=== PATIENT | male | born 1975 | race Caucasian/White ===

== ENCOUNTER 2018-08-03 14:11 | Emergency (ER) | payer SELFPAY ==
[2018-08-03] MEDS ORDERED: MORPHINE 4 MG/ML SYR ONE ×2 (14:26→15:29)
[2018-08-03] MEDS ORDERED: ONDANSETRON 4 MG/2 ML VIAL ONE (14:26)
[2018-08-03] MEDS ORDERED: BUPIVACAINE 0.5% PF 10 ML VIAL ONE (14:27)
[2018-08-03] MEDS ORDERED: LIDOCAINE 1% MPF 30 ML VIAL ONE (14:27)
[2018-08-03] MEDS ORDERED: CLINDAMYCIN 900MG/D5W 900 MG/50 ML BAG IV ONE (14:50)
[2018-08-03] MEDS ORDERED: CEFAZOLIN/SWI 1gm 2 GM/20 ML SYR ONE (14:50)
--- NOTE | 2018-08-03 14:52 | RAD REPORT ---
EXAM DESCRIPTION: [place] Single View08/03/2018 2:47 pm CLINICAL HISTORY: Chest pain COMPARISON: none FINDINGS: The lungs appear clear of acute infiltrate. The heart is normal size IMPRESSION: No acute abnormalities displayed
--- NOTE | 2018-08-03 14:55 | ER ---
Nurse's Notes [facility] Name: José Luis Friedman Age: 43 yrs Sex: Male : 1975 Arrival Date: 08/03/2018 Time: 14:10 Bed 2 Private MD: Diagnosis: Crushing injury of hand-distal radius, 3rd, 4th metacarpal fractures, open dip left thumb, complex laceration with foreign bodies Presentation: 08/03 14:10 Transition of care: patient was not received from another setting of care. Onset of sg symptoms was August 04, 2018. Risk Assessment: Do you want to hurt yourself or someone else? Patient reports no desire to harm self or others. Initial Sepsis Screen: Does the patient meet any 2 criteria? No. Patient's initial sepsis screen is negative. Does the patient have a suspected source of infection? No. Patient's initial sepsis screen is negative. 14:14 Presenting complaint: EMS states: Left hand was crushed in between two large sg construction pipes. Care prior to arrival:. Mechanism of Injury: Crush injury from being trapped between two large construction pipes that had unknown weight. Patient was trapped for approximately 20 minutes. 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 14:14 Acuity: MOOSE 2 14:14 Method Of Arrival: EMS: [facility] sg Triage Assessment: 08/04 14:10 General: Appears uncomfortable, Behavior is calm, cooperative, appropriate for age. sg Trauma Activation: Alert Physician: ED Physician; Name: ; Notified At: ; Arrived At: Physician: General Surgeon; Name: ; Notified At: ; Arrived At: Physician: Radiology; Name: ; Notified At: ; Arrived At: Physician: Respiratory; Name: ; Notified At: ; Arrived At: Physician: Lab; Name: ; Notified At: ; Arrived At: Historical: - Allergies: 08/03 14:12 No Known Allergies; sg - Home Meds: 14:12 None [Active]; sg - PMHx: 14:12 None; sg - PSHx: 14:12 Total Hip Replacement; sg - Code Status:: Full code. - Immunization history: Last tetanus immunization: - up to date. - Social history:: Smoking status: Patient/guardian denies using tobacco. - Family history:: not pertinent. - Ebola Screening: : Patient negative for fever greater than or equal to 101.5 degrees Fahrenheit, and additional compatible Ebola Virus Disease symptoms Patient denies exposure to infectious person Patient denies travel to an Ebola-affected area in the 21 days before illness onset No symptoms or risks identified at this time. Screenin:14 Abuse screen: Denies threats or abuse. Denies injuries from another. Tuberculosis ss screening: No symptoms or risk factors identified. Never had TB. Primary Survey: 14:14 A: Airway: patent, No supplemental oxygen in use on arrival. Breathing/Chest: ss Respiratory pattern: regular, Respiratory effort: unlabored, Breath sounds: clear, bilaterally. Chest inspection: symmetrical rise and fall of the chest. Circulation: Heart tones present. Pulses: palpable left radial artery and left brachial artery. Skin temperature: warm. Disability Alert. 14:30 Reassessment Airway Airway Patent Breathing/Chest Respiratory pattern Regular sg Respiratory effort Spontaneous Unlabored Breath sounds Clear Chest inspection Symmetrical Circulation Heart tones Present Temperature Warm Disability Alert. Secondary Survey: 14:14 HEENT: Head No injury/deformity Face No injury/deformity Eyes: No injury or deformity ss noted. Ears: clear Nose: clear Throat: is clear. Gastrointestinal: No deficits noted. : No signs and/or symptoms were reported regarding the genitourinary system. Musculoskeletal: Circulation, motion, and sensation intact. Capillary refill is sluggish, in left fingers. Range of motion: limited in left hand, left thumb Swelling present in left hand. Injury Description: Crush injury sustained to dorsal aspect of left wrist fracture to left thumb, is open with bone exposure noted. Assessment: 14:10 General: Appears in no apparent distress. uncomfortable, well groomed, well developed, sg well nourished, Behavior is calm, cooperative, appropriate for age. Pain: Complains of pain in left hand Quality of pain is described as aching, tender, throbbing, numb. Neuro: No deficits noted. Cardiovascular: Capillary refill is sluggish in left fingers Patient's skin is warm and dry. Chest pain is denied. Respiratory: Airway is patent Respiratory effort is even, unlabored, Respiratory pattern is regular, symmetrical. GI: Abdomen is flat, non-distended, Bowel sounds. : No signs and/or symptoms were reported regarding the genitourinary system. EENT: No signs and/or symptoms were reported regarding the EENT system. Derm: Skin is pink, warm \T\ dry. Skin temperature is warm. Injury Description: Crush injury sustained to left hand was sustained 30-60 minutes ago. Deformity sustained to dorsal aspect of proximal phalanx of left thumb and dorsum of left hand is bone exposed in left thumb. Vital Signs: 14:12 Pulse 77; Resp 17; Temp 97.7; Pulse Ox 100% on R/A; sg 14:12 BP 142 / 97; sg 15:12 BP 121 / 85; Pulse 70; Resp 17; Pulse Ox 100% on R/A; Pain 6/10; sg 16:12 BP 120 / 80; Pulse 72; Resp 17; Temp 97.1; Pulse Ox 100% on R/A; Pain 3/10; sg [place] Coma Score: 14:12 Eye Response: spontaneous(4). Verbal Response: oriented(5). Motor Response: obeys sg commands(6). Total: 15. 15:12 Eye Response: spontaneous(4). Verbal Response: oriented(5). Motor Response: obeys sg commands(6). Total: 15. Trauma Score (Adult): 14:12 Eye Response: spontaneous(1); Verbal Response: oriented(1); Motor Response: obeys sg commands(2); Systolic BP: > 89 mm Hg(4); Respiratory Rate: 10 to 29 per min(4); Hong Score: 15; Trauma Score: 12 15:12 Eye Response: spontaneous(1); Verbal Response: oriented(1); Motor Response: obeys sg commands(2); Systolic BP: > 89 mm Hg(4); Respiratory Rate: 10 to 29 per min(4); Hong Score: 15; Trauma Score: 12 ED Course: 14:10 Patient arrived in ED. sg 14:10 Patient maintains SpO2 saturation greater than 95% on room air. Thermoregulation: warm sg blanket given to patient. 14:10 Arm band placed on. sg 14:14 Patient has correct armband on for positive identification. Bed in low position. Call ss light in reach. Side rails up X2. monitoring tech on. Pulse ox on. NIBP on. 14:17 Triage completed. sg 14:17 Inserted saline lock: 20 gauge in right antecubital area, using aseptic technique. jb1 14:19 Baldev Chau MD is Attending Physician. felix 14:41 Dwayne Kemp, TIERA is Primary Nurse. sg 14:47 XRAY Chest (1 view) In Process Unspecified. EDMS 14:50 EKG done, by recreational therapy technician. reviewed by Baldev Chau MD. sm3 14:56 Hand Left 3 View In Process Unspecified. EDMS 17:08 No provider procedures requiring assistance completed. Patient transferred, IV remains sg in place. intact, No redness/swelling at site. Administered Medications: 14:25 Drug: Zofran 4 mg Route: IVP; Site: right antecubital; sg 15:00 Follow up: Response: No adverse reaction; Nausea is decreased sg 14:27 Not Given (Patient Refused; 08/03/2017): Tetanus-Diphtheria Toxoid Adult 0.5 ml IM once sg 14:28 Drug: morphine 4 mg Route: IVP; Site: right antecubital; sg 15:00 Follow up: Response: No adverse reaction; Pain is unchanged, physician notified sg 14:50 Drug: Ancef 2 grams {Note: administered slow IV push as instructed by pharmacy.} Route: ss IVPB; Infused Over: 30 mins; Site: right antecubital; 15:33 Follow up: Response: No adverse reaction; IV Status: Completed infusion sg 14:52 Drug: Clindamycin 900 mg Route: IVPB; Infused Over: 30 mins; Site: right antecubital; ss 15:20 Follow up: Response: No adverse reaction; IV Status: Completed infusion sg 15:28 Drug: morphine 4 mg Route: IVP; Site: right antecubital; sg 15:48 Follow up: Response: No adverse reaction; Pain is decreased sg 15:48 Not Given (Physician Discretion): Bupivacaine (0.5 %) 5 ml 10 ml Infiltration once sg 15:49 Not Given (Physician Discretion): Lidocaine (2 %) 5 ml 5 ml Infiltration once; to sg bedside Intake: 14:12 PO: 0ml; Total: 0ml. sg Outcome: 14:54 ER care complete, transfer ordered by . felix 15:31 Transferred by ground EMS to [facility], Transfer form completed. X-rays sent sg w/ patient. 15:31 Condition: stable 15:31 Instructed on the need for transfer, safety practices. 17:00 Patient's length of stay in the Emergency Department was greater than 2 hours. no sg available EMS transport at the time of transferPatient's length of stay extended due to 17:08 Patient left the ED. jb1 Signatures: Dispatcher [employer] EDSD Louie Huizar jb1 Dwayne Kemp RN RN Baldev Cisneros MD MD cha Smirch, Shelby, RN RN Leonor Hastings 3 Corrections: (The following items were deleted from the chart) 14:56 14:47 In radiology for Hand Right 3 View+RAD.RAD.BRZ. [facility] 08/04 16:47 14:10 Thermoregulation: warm blanket given to patient. sg 16:47 14:10 Patient maintains SpO2 saturation greater than 95% on room air. sg sg 16:50 08/03 14:10 Reassessment Airway Airway Patent Breathing/Chest Respiratory pattern sg Regular Respiratory effort Spontaneous Unlabored Breath sounds Clear Chest inspection Symmetrical Circulation Heart tones Present Temperature Warm Disability Alert sg 08/04 16:52 16:12 BP 120 / 80; Pulse 72bpm; Resp 17bpm; Pulse Ox 100% RA; Temp 97.1F; Pain 3/10; sg sg
--- NOTE | 2018-08-03 14:55 | EDPHYS ---
Physician Documentation [facility] Name: José Luis Friedman Age: 43 yrs Sex: Male : 1975 Arrival Date: 08/03/2018 Time: 14:10 Bed 2 Private MD: ED Physician Baldev Chau HPI: 08/03 14:32 This 43 yrs old Male presents to ER via EMS with complaints of Crush Injury felix To Hand. 14:32 The patient or guardian reports decreased range of motion, deformity, injury, swelling, felix tenderness. The complaints affect the left hand diffusely. 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 Onset: The symptoms/episode began/occurred just prior to arrival. Modifying factors: The symptoms are alleviated by nothing, elevation, the symptoms are aggravated by movement, dependent position. Associated signs and symptoms: The patient has no apparent associated signs or symptoms. Severity of symptoms: At their worst the symptoms were moderate, severe, in the emergency department the symptoms are unchanged. The patient has not experienced similar symptoms in the past. Historical: - Allergies: 14:12 No Known Allergies; sg - Home Meds: 14:12 None [Active]; sg - PMHx: 14:12 None; sg - PSHx: 14:12 Total Hip Replacement; sg - Code Status:: Full code. - Immunization history: Last tetanus immunization: - up to date. - Social history:: Smoking status: Patient/guardian denies using tobacco. - Family history:: not pertinent. - Ebola Screening: : Patient negative for fever greater than or equal to 101.5 degrees Fahrenheit, and additional compatible Ebola Virus Disease symptoms Patient denies exposure to infectious person Patient denies travel to an Ebola-affected area in the 21 days before illness onset No symptoms or risks identified at this time. ROS: 14:32 Constitutional: Negative for fever, chills, and weight loss, Eyes: Negative for injury, felix pain, redness, and discharge, ENT: Negative for injury, pain, and discharge, Neck: Negative for injury, pain, and swelling, Cardiovascular: Negative for chest pain, palpitations, and edema, Respiratory: Negative for shortness of breath, cough, wheezing, and pleuritic chest pain, Abdomen/GI: Negative for abdominal pain, nausea, vomiting, diarrhea, and constipation, Back: Negative for injury and pain, : Negative for injury, bleeding, discharge, and swelling, Neuro: Negative for headache, weakness, numbness, tingling, and seizure, Psych: Negative for depression, anxiety, suicide ideation, homicidal ideation, and hallucinations, Allergy/Immunology: Negative for hives, rash, and allergies, Endocrine: Negative for neck swelling, polydipsia, polyuria, polyphagia, and marked weight changes, Hematologic/Lymphatic: Negative for swollen nodes, abnormal bleeding, and unusual bruising. 14:32 MS/extremity: Positive for decreased range of motion, deformity, laceration, pain, swelling, tenderness, of the dorsal aspect of proximal phalanx of left thumb, palm of left hand and inner aspect of left palm. Exam: 14:32 Constitutional: This is a well developed, well nourished patient who is awake, alert, felix and in no acute distress. Head/Face: Normocephalic, atraumatic. Eyes: Pupils equal round and reactive to light, extra-ocular motions intact. Lids and lashes normal. Conjunctiva and sclera are non-icteric and not injected. Cornea within normal limits. Periorbital areas with no swelling, redness, or edema. ENT: Nares patent. No nasal discharge, no septal abnormalities noted. Tympanic membranes are normal and external auditory canals are clear. Oropharynx with no redness, swelling, or masses, exudates, or evidence of obstruction, uvula midline. Mucous membranes moist. Neck: Trachea midline, no thyromegaly or masses palpated, and no cervical lymphadenopathy. Supple, full range of motion without nuchal rigidity, or vertebral point tenderness. No Meningismus. Chest/axilla: Normal chest wall appearance and motion. Nontender with no deformity. No lesions are appreciated. Cardiovascular: Regular rate and rhythm with a normal S1 and S2. No gallops, murmurs, or rubs. Normal PMI, no JVD. No pulse deficits. Respiratory: Lungs have equal breath sounds bilaterally, clear to auscultation and percussion. No rales, rhonchi or wheezes noted. No increased work of breathing, no retractions or nasal flaring. Abdomen/GI: Soft, non-tender, with normal bowel sounds. No distension or tympany. No guarding or rebound. No evidence of tenderness throughout. Back: No spinal tenderness. No costovertebral tenderness. Full range of motion. Male : Normal genitalia with no discharge or lesions. Skin: Warm, dry with normal turgor. Normal color with no rashes, no lesions, and no evidence of cellulitis. Neuro: Awake and alert, GCS 15, oriented to person, place, time, and situation. Cranial nerves II-XII grossly intact. Motor strength 5/5 in all extremities. Sensory grossly intact. Cerebellar exam normal. Normal gait. Psych: Awake, alert, with orientation to person, place and time. Behavior, mood, and affect are within normal limits. 14:32 Musculoskeletal/extremity: ROM: limited active range of motion, limited passive range of motion, limited active range of motion due to pain, limited passive range of motion due to pain, Circulation is intact in all extremities. numbness, decreased sensation, Compartment Syndrome exam of affected extremity: is normal. open dip joint , complex left adamson laceration, open fravtures obvious. Vital Signs: 14:12 Pulse 77; Resp 17; Temp 97.7; Pulse Ox 100% on R/A; sg 14:12 BP 142 / 97; sg 15:12 BP 121 / 85; Pulse 70; Resp 17; Pulse Ox 100% on R/A; Pain 6/10; sg 16:12 BP 120 / 80; Pulse 72; Resp 17; Temp 97.1; Pulse Ox 100% on R/A; Pain 3/10; sg Hong Coma Score: 14:12 Eye Response: spontaneous(4). Verbal Response: oriented(5). Motor Response: obeys sg commands(6). Total: 15. 15:12 Eye Response: spontaneous(4). Verbal Response: oriented(5). Motor Response: obeys sg commands(6). Total: 15. Trauma Score (Adult): 14:12 Eye Response: spontaneous(1); Verbal Response: oriented(1); Motor Response: obeys sg commands(2); Systolic BP: > 89 mm Hg(4); Respiratory Rate: 10 to 29 per min(4); [place] Score: 15; Trauma Score: 12 15:12 Eye Response: spontaneous(1); Verbal Response: oriented(1); Motor Response: obeys sg commands(2); Systolic BP: > 89 mm Hg(4); Respiratory Rate: 10 to 29 per min(4); [place] Score: 15; Trauma Score: 12 MDM: 14:19 Patient medically screened. [facility] 14:37 Data reviewed: vital signs, nurses notes, EMS record, lab test result(s), EKG, felix radiologic studies, plain films. 08/03 14:20 Order name: Basic Metabolic Panel; Complete Time: 16:22 [facility] 08/03 14:20 Order name: CBC with Diff; Complete Time: 16:22 [facility] 08/03 14:20 Order name: LFT's; Complete Time: 16:22 [facility] 08/03 14:20 Order name: Magnesium; Complete Time: 16:22 [facility] 08/03 14:20 Order name: NT PRO-BNP; Complete Time: 16:22 [facility] 08/03 14:20 Order name: PT-INR; Complete Time: 16:22 [facility] 08/03 14:20 Order name: Troponin (emerg Dept Use Only); Complete Time: 16:22 [facility] 08/03 14:20 Order name: XRAY Chest (1 view); Complete Time: 16:22 [facility] 08/03 14:56 Order name: Hand Left 3 View; Complete Time: 16:22 EDMS 08/03 14:20 Order name: EKG; Complete Time: 14:21 [facility] 08/03 14:20 Order name: Cardiac monitoring; Complete Time: 14:22 [facility] 08/03 14:20 Order name: EKG - Nurse/Tech; Complete Time: 14:32 [facility] 08/03 14:20 Order name: IV Saline Lock; Complete Time: 14:22 [facility] 08/03 14:20 Order name: Labs collected and sent; Complete Time: 14:22 [facility] 08/03 14:20 Order name: O2 Per Protocol; Complete Time: 14:22 [facility] 08/03 14:20 Order name: O2 Sat Monitoring; Complete Time: 14:22 [facility] 08/03 14:20 Order name: NPO; Complete Time: 14:43 [facility] 08/03 14:21 Order name: Dressing - Wound; Complete Time: 14:41 [facility] 08/03 14:21 Order name: Gloves, Sterile; Complete Time: 14:41 [facility] 08/03 14:21 Order name: Setup Suture Tray; Complete Time: 14:41 [facility] Administered Medications: 14:25 Drug: Zofran 4 mg Route: IVP; Site: right antecubital; sg 15:00 Follow up: Response: No adverse reaction; Nausea is decreased sg 14:27 Not Given (Patient Refused; 08/03/2017): Tetanus-Diphtheria Toxoid Adult 0.5 ml IM once sg 14:28 Drug: morphine 4 mg Route: IVP; Site: right antecubital; sg 15:00 Follow up: Response: No adverse reaction; Pain is unchanged, physician notified sg 14:50 Drug: Ancef 2 grams {Note: administered slow IV push as instructed by pharmacy.} Route: ss IVPB; Infused Over: 30 mins; Site: right antecubital; 15:33 Follow up: Response: No adverse reaction; IV Status: Completed infusion sg 14:52 Drug: Clindamycin 900 mg Route: IVPB; Infused Over: 30 mins; Site: right antecubital; ss 15:20 Follow up: Response: No adverse reaction; IV Status: Completed infusion sg 15:28 Drug: morphine 4 mg Route: IVP; Site: right antecubital; sg 15:48 Follow up: Response: No adverse reaction; Pain is decreased sg 15:48 Not Given (Physician Discretion): Bupivacaine (0.5 %) 5 ml 10 ml Infiltration once sg 15:49 Not Given (Physician Discretion): Lidocaine (2 %) 5 ml 5 ml Infiltration once; to bedside Disposition: 08/03/18 14:54 Transfer ordered to [facility]. Diagnosis is Crushing injury of hand - distal radius, 3rd, 4th metacarpal fractures, open dip left thumb, complex laceration with foreign bodies. - Reason for transfer: Higher level of care. - Accepting physician is to , er. - Condition is Fair. - Problem is new. - Symptoms have improved. Signatures: Dispatcher [employer] [facility] Louie Huizar jb1 Dwayne Kemp, TIERA RN Baldev Cisneros MD MD cha Smirch, Shelby, RN RN ss Corrections: (The following items were deleted from the chart) 14:56 14:21 Hand Right 3 View+RAD.RAD.BRZ ordered. [facility] 17:08 14:54 08/03/2018 14:54 Transfer ordered to [facility]. [email or web address] Diagnosis is Crushing injury of hand - distal radius, 3rd, 4th metacarpal fractures, open dip left thumb, complex laceration with foreign bodies. Reason for transfer: Higher level of care. Accepting physician is to , er. Condition is Fair. Problem is new. Symptoms have improved. felix
[2018-08-03 14:58] LABS: Absolute Lymphocytes (CBC) 1.2 K/uL (0.7-4.9); Absolute Monocytes 0.6 K/uL (0.1-1.3); Absolute Neutrophil 3.1 K/uL (1.8-8.0); Eosinophils % 1.5 % (0-4.4); Hematocrit 39.6 % (39.6-49.0); Lymphocytes % 23.9 % (15.3-44.8); MCH 32.1 pg (27.0-35.0); MCV 93.7 fL (80-100); MPV 8.2 fL (7.6-11.3); Monocytes % 12.5 % (3.3-12.3); RBC Red Blood Cell Count 4.23 M/uL (4.33-5.43)
--- NOTE | 2018-08-03 14:58 | RAD REPORT ---
EXAM DESCRIPTION: RAD - Hand Right 3 View - 08/03/2018 2:48 pm CLINICAL HISTORY: Right hand pain status post injury FINDINGS: Dislocation involves the first distal phalanx. Dislocation is suspected involving the base of the third metacarpal. Nondisplaced fracture involves the distal fourth metacarpal. Moderately displaced fracture involves t he mid third metacarpal with angulation present at the fracture site. There is a questionable nondisplaced fracture involving the distal left radius. Several metallic foreign bodies are present
[2018-08-03 15:08] LABS: Protime INR 1.02
[2018-08-03 15:22] LABS: ALT/SGPT 25 U/L (12-78); AST/SGOT 25 U/L (15-37); Albumin 3.7 g/dL (3.4-5.0); Alkaline Phosphatase 68 U/L (45-117); BUN Blood Urea Nitrogen 10 mg/dL (7-18); Bicarbonate 27 mmol/L (21-32); Bilirubin Direct 0.1 mg/dL (0-0.2); Bilirubin Total 0.6 mg/dL (0.2-1.0); Glucose Level 144 mg/dL (74-106); NT PRO-BNP 6 pg/mL (<125); Potassium 3.7 mmol/L (3.5-5.1); Protein, Total 7.2 g/dL (6.4-8.2); Sodium Level 141 mmol/L (136-145); Troponin (Emerg Dept Use Only) < 0.02 ng/mL (0.0-0.045)
--- NOTE | 2018-08-03 17:04 | EKG ---
Test Date: 2018-08-03 Test Time: 14:36:32 Stamp Presser: SUNIL MEASUREMENT RESULTS: Intervals: Rate: 99 WI: 162 QRSD: 86 QT: 350 QTc: 449 [place]: P: 44 WI: 162 QRS: 16 T: 14 INTERPRETIVE STATEMENTS: Normal sinus rhythm Possible Anterior infarct, age undetermined Abnormal ECG No previous ECG available for comparison Electronically Signed On 08-03-18 17:03:21 CDT by Willem Collazo
== END 2018-08-03 17:08 | disposition short-term general hospital (02) ==
LOC: ER 14:11
DX: S52.502A Unspecified fracture of the lower end of left radius, initial encounter for closed fracture (principal); S62.303A Unspecified fracture of third metacarpal bone, left hand, initial encounter for closed fracture; S62.305A Unspecified fracture of fourth metacarpal bone, left hand, initial encounter for closed fracture; S62.522B Displaced fracture of distal phalanx of left thumb, initial encounter for open fracture; S61.422A Laceration with foreign body of left hand, initial encounter; W31.89XA Contact with other specified machinery, initial encounter; Y93.9 Activity, unspecified; Y92.89 Other specified places as the place of occurrence of the external cause; Y99.8 Other external cause status; Z23 Encounter for immunization
CPT/HCPCS: 36415; 71045; 80048; 80076; 83735; 83880; 84484; 85025; 85610; 93005; 96365; 96375; 99285; J0690; J2405

== ENCOUNTER 2019-04-18 19:15 | Emergency (ER) | payer OTHER, SELFPAY ==
--- OUTSIDE RECORDS SUMMARY | 2019-04-18 19:19 | XMS REPORT | Continuity of Care Document ---
:1975 Author Organization Interface Problems Problem Status Onset Classification Date Comments Source Date Reported Crushing injury of 08/27/20 02/22/2019 [facility] left hand, initial 18 Medical encounter Center PAIN DUE TO Active 08/04/20 [facility] INTERNAL ORTHOPEDIC Medical PROSTHET Center LT HAND CRUSH Active 08/03/20 [facility] INJURY [address] [place] [address] Center FX OF CAPITATE Active 08/03/[address] Center Nondisplaced 02/22/2019 [facility] fracture of left [facility] radial styloid Center process, initial encounter for closed fracture Displaced fracture 02/22/2019 [facility] of shaft of third [facility] metacarpal bone, Center left hand, initial encounter for open fracture Laceration of 02/22/2019 [facility] extensor muscle, Medical fascia and tendon Center of left thumb at wrist and hand level, initial encounter Dislocation of 02/22/2019 [facility] interphalangeal [facility] joint of left Center thumb, initial encounter Crushing injury of 02/22/2019 [facility] left middle finger, Medical initial encounter Center Crushing injury of 02/22/2019 [facility] left ring finger, Medical initial encounter Center Crushing injury of 02/22/2019 [facility] left thumb, initial Medical encounter Center Nondisplaced 02/22/2019 [facility] fracture of neck of Medical fourth metacarpal [place] bone, left hand, initial encounter for closed fracture Caught, crushed, 02/22/2019 [facility] jammed, or pinched Medical between moving Center objects, initial encounter DISP FX OF CAPITATE Active [facility] BONE, UNSP WRIST, Medical IN Center Medications Medication Details Route Status Patient Ordering Order Source Instructions Provider Date Acetaminophen 1,000 mg, Route: Inactive [place] PO, ONCE, Dosing 2018 Medical Weight 77.273, Center kg, PRN Pain 4-6/Temp > 100.4 F, Start date: 12/01/18 12:45:00 DIRECTOR CLINICAL OPERATIONS Ondansetron 4 mg, 2 mL, No Longer [facility] Route: IVP, Drug Active 2018 Medical form: INJ, ONCE, Center Dosing Weight 77.273, kg, PRN Nausea & Vomiting, Start date: 12/01/18 12:37:00 CSTNotes: (Same as: Zojani) MEDICATION WASTE Product Size: 4 mg Product Wasted: ___ mg Naloxone 0.4 mg, 1 mL, No Longer [facility] Route: IVP, Drug Active 2018 Medical form: INJ, Center Q2MIN, Dosing Weight 77.273, kg, PRN Narcotic Reversal, Start date: 12/01/18 12:37:00 [employer]IN[employer]PERATIONS, Duration: 8 doses or times, Stop date: Limited # of timesNotes: Same as Narcan Flumazenil 0.2 mg, 2 mL, No Longer [facility] Route: IVP, Drug Active 2018 Medical form: INJ, PRN, Center Dosing Weight 77.273, kg, PRN Benzodiazepine Reversal, Initial dose, Start date: 12/01/18 12:37:00 DIRECTOR [employer]INICAL [employer]PERATIONS, Duration: 1 day, Stop date: 12/02/18 12:36:00 CSTNotes: (Same as: Romazicon) Fentanyl 25 microgram, No Longer [place] 0.5 mL, Route: Active 2019 Medical IVP, Drug form: Center INJ, Q5Min, Dosing Weight 77.273, kg, PRN Pain Score 4-6, Priority: Routine, Start date: 12/01/18 12:37:00 DIRECTOR [employer]INICAL [employer]PERATIONS, Duration: 4 doses or times, Stop date: Limited # of timesNotes: (Same as: Sublimaze) Preservative free. Hydromorphone 0.5 mg, 0.25 mL, No Longer [facility] Route: IVP, Drug Active 2018 Medical form: INJ, Center Q5Min, Dosing Weight 77.273, kg, PRN Pain Score 7-10, Start date: 12/01/18 12:37:00 [employer]OR [employer]IN[employer]PERATIONS, Duration: 4 doses or times, Stop date: Limited # of timesNotes: Same as Dilaudid Oxycodone 5 mg, 1 tab, No Longer [facility] Route: PO, Drug Active 2018 Medical form: TAB, Q4H, Center Dosing Weight 77.273, kg, PRN Pain Score 4-6, Start date: 12/01/18 12:37:00 DIRECTOR [employer]INICAL OPERATIONS, Duration: 1 day, Stop date: 12/02/18 12:36:00 CSTNotes: (Same as: Roxicodone) Labetalol 10 mg, 2 mL, No Longer [facility] Route: IVP, Drug Active 2018 Medical form: INJ, Center Q5Min, Dosing Weight 77.273, kg, PRN Elevated BP, Start date: 12/01/18 12:37:00 DIRECTOR [employer]IN[employer]PERATIONS, Duration: 5 doses or times, Stop date: Limited # of times Hydralazine 10 mg, 0.5 mL, No Longer [facility] Route: IVP, Drug Active 2018 Medical form: INJ, Center Q20Min, Dosing Weight 77.273, kg, PRN Elevated BP, Start date: 12/01/18 12:37:00 DIRECTOR CLINICAL OPERATIONS, Duration: 2 doses or times, Stop date: Limited # of timesNotes: (Same as: Apresoline) Push over 5 minutes ondansetron (ANES) Route: IV, Drug Inactive [facility] form: INJ, ONCE, 2018 Medical Stop date: [place] 12/01/18 12:00:00 DIRECTOR CLINICAL OPERATIONS ketOROLAC (ANES) IV, ONCE Inactive [address] fentaNYL (ANES) Route: IV, Drug Inactive [facility] form: INJ, ONCE, 2018 Medical Stop date: [place] 12/01/18 11:33:00 DIRECTOR CLINICAL OPERATIONS lidocaine (ANES) Route: IV, Drug Inactive [facility] form: INJ, ONCE, 2018 Medical Stop date: [place] 12/01/18 11:23:00 DIRECTOR CLINICAL OPERATIONS propofol (ANES) Route: IV, Drug Inactive [facility] form: INJ, ONCE, 2018 Medical Stop date: [place] 12/01/18 11:23:00 DIRECTOR CLINICAL OPERATIONS ceFAZolin (ANES) Route: IV, Drug Inactive [facility] form: INJ, ONCE, 2018 Medical Stop date: [place] 12/01/18 11:18:00 DIRECTOR CLINICAL OPERATIONS midazolam (ANES) Route: IV, Drug Inactive [facility] form: SOLN, 2019 Medical ONCE, Stop date: [place] 12/01/18 11:13:00 DIRECTOR CLINICAL OPERATIONS Lactated Ringers Route: IV, Total Inactive [facility] Injection IV Volume: 1,000, 2019 Medical (ANES) 1000 mL Start date: [place] 12/01/18 10:35:00 DIRECTOR CLINICAL OPERATIONS, Stop date: 12/01/18 11:35:00 DIRECTOR CLINICAL OPERATIONS Aleve 220 mg, PO, 0 Active [place] Refill(s) 2019 [facility] Ancef 2 gm, 20 mL, No Longer [place] Route: IVPB, Active 2018 Medical Drug form: SOLN, [place] Q8H, Dosing Weight 72.727, kg, Start date: 08/04/18 23:00:00 CDT, Duration: 2 doses or times, Stop date: 08/05/18 7:00:00 CDT, ABX Indication: Surgical ProphylaxisNotes : (Same as Ancef) Sulfamethoxazole 1 tab, PO, BID, No Longer [place] 800 MG / X 7 day, # 14 Active 2018 Medical Trimethoprim 160 tab, 0 Refill(s) Center MG Oral Tablet [Bactrim] Acetaminophen 300 1 tab, PO, Q6H, No Longer [place] MG / Codeine PRN Pain, X 15 Active 2018 Medical Phosphate 30 MG day, # 60 tab, 0 Center Oral Tablet Refill(s) [Tylenol with Codeine #3] Docusate 100 mg, 1 cap, No Longer [place] Route: PO, Drug Active 2018 Medical form: CAP, BID, Center Dosing Weight 72.727, kg, Start date: 08/04/18 17:00:00 CDT, Duration: 30 day, Stop date: 09/03/18 9:00:00 CSTNotes: (Same as: Colace) (Do Not Crush) tramadol 50 mg=1 tab, PO, No Longer [place] hydrochloride 50 Q4H, PRN Pain, X Active 2018 Medical MG Oral Tablet 10 day, # 60 Center tab, 0 Refill(s) acetaminophen Route: IV, Drug Inactive [place] (ANES) form: INJ, ONCE, 2017 Medical Stop date: [place] 08/04/18 16:57:00 CDT neostigmine (ANES) Route: IV, Drug Inactive [place] form: INJ, ONCE, 2017 Medical Stop date: [place] 08/04/18 16:52:00 CDT glycopyrrolate Route: IV, Drug Inactive [facility] (ANES) form: INJ, ONCE, 2018 Medical Stop date: [place] 08/04/18 16:52:00 CDT Oxycodone 10 mg, Route: Inactive [facility] PO, Drug form: 2018 Medical TAB, Q4H, Dosing Center Weight 72.727, kg, PRN Pain Score 7-10, Start date: 08/04/18 16:05:00 CDT, Duration: 30 day, Stop date: 09/03/18 16:04:00 DIRECTOR CLINICAL OPERATIONS Labetalol 10 mg, Route: Inactive [facility] IVP, Q5Min, 2018 Medical Dosing Weight Center 72.727, kg, PRN Elevated BP, Start date: 08/04/18 16:05:00 CDT, Duration: 5 doses or times, Stop date: Limited # of times Ondansetron 4 mg, Route: Inactive [facility] IVP, ONCE, 2018 Medical Dosing Weight Center 72.727, kg, PRN Nausea & Vomiting, Start date: 08/04/18 16:05:00 CDT Flumazenil 0.2 mg, Route: Inactive [facility] IVP, PRN, Dosing 2018 Medical Weight 72.727, Center kg, PRN Benzodiazepine Reversal, Initial dose, Start date: 08/04/18 16:05:00 CDT, Duration: 30 day, Stop date: 09/03/18 15:04:00 DIRECTOR CLINICAL OPERATIONS Naloxone 0.4 mg, Route: Inactive [facility] IVP, Q2MIN, 2018 Medical Dosing Weight Center 72.727, kg, PRN Narcotic Reversal, Start date: 08/04/18 16:05:00 CDT, Duration: 8 doses or times, Stop date: Limited # of times ceFAZolin (ANES) Route: IV, Drug Inactive [facility] form: INJ, ONCE, 2018 Medical Stop date: [place] 08/04/18 15:22:00 CDT midazolam (ANES) Route: IV, Drug Inactive [facility] form: SOLN, 2018 Medical ONCE, Stop date: [place] 08/04/18 15:12:00 CDT rocuronium (ANES) Route: IV, Drug Inactive [facility] form: INJ, ONCE, 2018 Medical Stop date: [place] 08/04/18 15:12:00 CDT lidocaine (ANES) Route: IV, Drug Inactive [facility] form: INJ, ONCE, 2017 Medical Stop date: [place] 08/04/18 15:12:00 CDT fentaNYL (ANES) Route: IV, Drug Inactive [facility] form: INJ, ONCE, 2017 Medical Stop date: [place] 08/04/18 15:12:00 CDT propofol (ANES) Route: IV, Drug Inactive [facility] form: INJ, ONCE, 2017 Medical Stop date: [place] 08/04/18 15:12:00 CDT Lactated Ringers Route: IV, Total Inactive [place] Injection IV Volume: 1,000, 2018 Medical (ANES) 1000 mL Start date: [place] 08/04/18 14:34:00 CDT, Stop date: 08/04/18 15:34:00 CDT Ancef 2 gm, 20 mL, Inactive [place] Route: IVP, Drug 2017 Medical form: SOLN, [place] Q8Hnow, Dosing Weight 72.727, kg, Start date: 08/04/18 14:00:00 CDT, Duration: 30 day, Stop date: 09/03/18 6:00:00 DIRECTOR CLINICAL OPERATIONS, ABX Indication: Open Wound ProphylaxisNotes : (Same as Ancef) Tramadol 100 mg, 2 tab, No Longer [place] Route: PO, Drug Active 2017 Medical form: TAB, Q6H, Center Dosing Weight 72.727, kg, Start date: 08/04/18 12:00:00 CDT, Duration: 30 day, Stop date: 09/03/18 6:00:00 CSTNotes: Not to exceed 400mg/day. (Same As: Ultram) Ketorolac 30 mg, 1 mL, No Longer [place] Route: IVP, Drug Active 2017 Medical form: INJ, Center Q6Hnow, Dosing Weight 72.727, kg, Start date: 08/04/18 10:00:00 CDT, Duration: 24 hr, Stop date: 08/05/18 4:00:00 CDTNotes: (Same as:Toradol) IV bolus must be given >15 seconds. Give IM administration slowly and deeply into the muscle. Not for use > 4 days MEDICATION WASTE Product Size: 30 mg Product Wasted: ___ mg gabapentin 300 mg, 1 cap, No Longer [place] Route: PO, Drug Active 2017 Medical form: CAP, Center Q8Hnow, Dosing Weight 72.727, kg, Start date: 08/04/18 10:00:00 CDT, Duration: 30 day, Stop date: 09/03/18 2:00:00 CSTNotes: (Same as: Neurontin) Acetaminophen 1,000 mg, 2 tab, No Longer [place] Route: PO, Drug Active 2017 Medical form: TAB, Center Q6Hnow, Dosing Weight 72.727, kg, Start date: 08/04/18 10:00:00 CDT, Duration: 30 day, Stop date: 09/03/18 4:00:00 CSTNotes: Max acetaminophen 4000 mg/day (4 gm/day). (Same as: Tylenol Extra Strength) Diphenhydramine 12.5 mg, 5 mL, No Longer [place] Route: PO, Drug Active 2017 Medical form: LIQ, Q6H, Center Dosing Weight 72.727, kg, PRN Itching, Start date: 08/04/18 9:02:00 CDT, Duration: 30 day, Stop date: 09/03/18 9:01:00 CSTNotes: (Same as: Benadryl) Melatonin 3 mg, 1 tab, No Longer [place] Route: PO, Drug Active 2017 Medical form: TAB, Center Bedtime, Dosing Weight 72.727, kg, PRN Insomnia, Start date: 08/04/18 9:02:00 CDT, Duration: 30 day, Stop date: 09/03/18 9:01:00 CSTNotes: (Same as: Melatonin) Methocarbamol 1,000 mg, 2 tab, No Longer [place] Route: PO, Drug Active 2017 Medical form: TAB, Q8H, Center Dosing Weight 72.727, kg, PRN Muscle Spasms, Start date: 08/04/18 9:02:00 CDT, Duration: 30 day, Stop date: 09/03/18 9:01:00 CSTNotes: (Same as:Robaxin) Aluminum Hydroxide 30 mL, Route: No Longer [place] 40 MG/ML / PO, Drug Form: Active 2018 Medical Magnesium SUSP, Dosing Center Hydroxide 40 MG/ML Weight 72.727, / Simethicone 4 kg, Q4H, PRN MG/ML Oral Indigestion, Suspension Start date: 08/04/18 9:02:00 CDT, Duration: 30 day, Stop date: 09/03/18 9:01:00 CSTNotes: (aluminum hydroxide-magnes ium hyd-simethicone [phone]/5ml 30 ml ud JENNY) Oxycodone 10 mg, 2 tab, No Longer [place] Hydrochloride 5 MG Route: PO, Drug Active 2017 Medical Oral Tablet form: TAB, Q4H, Center Dosing Weight 72.727, kg, PRN Pain Score 7-10, Start date: 08/04/18 9:02:00 CDT, Duration: 30 day, Stop date: 09/03/18 9:01:00 CSTNotes: (Same as: Roxicodone) Ondansetron 4 mg, 2 mL, No Longer [place] Route: IVP, Drug Active 2017 Medical form: INJ, Q8H, Center Dosing Weight 72.727, kg, PRN Nausea & Vomiting, Start date: 08/04/18 9:02:00 CDT, Duration: 30 day, Stop date: 09/03/18 9:01:00 CSTNotes: (Same as: Zofran) MEDICATION WASTE Product Size: 4 mg Product Wasted: ___ mg Morphine 2 mg, 0.5 mL, No Longer [place] Route: IVP, Drug Active 2018 Medical form: SOLN, Q4H, Center Dosing Weight 72.727, kg, PRN Pain Score 7-10, Start date: 08/04/18 9:02:00 CDT, Duration: 30 day, Stop date: 09/03/18 9:01:00 CSTNotes: (Same as:MORPhine Sulfate) Tramadol 50 mg, 1 tab, Inactive [place] Route: PO, Drug 2017 Medical form: TAB, Q6H, Center Dosing Weight 72.727, kg, For CrCl Notes: Not to exceed 400mg/day. (Same As: Ultram) Diphenhydramine 12.5 mg, 5 mL, Inactive [place] Route: PO, Drug 2017 Medical form: LIQ, Q6H, Center Dosing Weight 72.727, kg, PRN Itching, Start date: 08/04/18 5:48:00 CDT, Duration: 30 day, Stop date: 09/03/18 5:47:00 CSTNotes: (Same as: Benadryl) Acetaminophen 1,000 mg, 2 tab, Inactive [place] Route: PO, Drug 2017 Medical form: TAB, Q6H, Center Dosing Weight 72.727, kg, Start date: 08/04/18 5:48:00 CDT, Duration: 3 day, Stop date: 08/07/18 0:00:00 CDTNotes: Max acetaminophen 4000 mg/day (4 gm/day). (Same as: Tylenol Extra Strength) pregabalin 100 mg, 1 cap, Inactive [facility] Route: PO, Drug 2017 Medical form: CAP, Q8H, Center Dosing Weight 72.727, kg, Priority: NOW, Start date: 08/04/18 5:48:00 CDT, Duration: 48 hr, Stop date: 08/06/18 0:00:00 CDTNotes: (Same as: Lyrica) Morphine 4 mg, 1 mL, Inactive [facility] Route: IVP, Drug 2017 Medical form: SOLN, Center ONCE, Dosing Weight 72.727, kg, Priority: STAT, Start date: 08/04/18 1:05:00 CDT, Stop date: 08/04/18 1:05:00 CDTNotes: (Same as:MORPhine Sulfate) Zofran 4 mg, 2 mL, Inactive [facility] Route: IVP, Drug 2017 Medical form: INJ, ONCE, Center Dosing Weight 72.727, kg, Priority: STAT, Start date: 08/04/18 1:05:00 CDT, Stop date: 08/04/18 1:05:00 CDTNotes: (Same as: Zofran) MEDICATION WASTE Product Size: 4 mg Product Wasted: ___ mg Dilaudid 1 mg, Route: Inactive [place] IVP, Drug form: 2018 Medical INJ, ONCE, Center Dosing Weight 72.727, kg, Priority: STAT, Start date: 08/03/18 21:44:00 CDT, Stop date: 08/03/18 21:44:00 CDTNotes: Same as Dilaudid Ancef 2 gm, 20 mL, No Longer [place] Route: IV, Drug Active 2018 Medical form: SOLN, Center Q8Hnow, Dosing Weight 72.727, kg, Start date: 08/03/18 20:00:00 CDT, Duration: 30 day, Stop date: 09/02/18 16:00:00 DIRECTOR CLINICAL OPERATIONS, ABX Indication: Open Wound ProphylaxisNotes : (Same as Ancef) Gentamicin 363.635 mg, Inactive [place] Route: IVPB, 2018 Medical Drug form: INJ, Center ONCE, Dosing Weight 72.727, kg, Priority: STAT, Start date: 08/03/18 19:54:00 CDT, Stop date: 08/03/18 19:54:00 CDT Sodium Chloride 250 mL, Rate: To Inactive [place] 0.9% (titrate) 250 prime line and 2018 Medical mL flush remaining Center blood products., Dosing Weight 72.727, kg, Route: IV, Total Volume: 250, Start Date: 08/03/18 18:49:00 CDT, Duration: 30 day, Stop date: 09/02/18 17:48:00 DIRECTOR CLINICAL OPERATIONS, Replace Every: 24 hr Ondansetron 4 mg, Route: Inactive [facility] IVP, Drug form: 2018 Medical INJ, ONCE, Center Dosing Weight 72.727, kg, Priority: STAT, Start date: 08/03/18 18:48:00 CDT, Stop date: 08/03/18 18:48:00 CDT Morphine 4 mg, Route: Inactive [facility] IVP, ONCE, 2018 Medical Dosing Weight Center 72.727, kg, Priority: STAT, Start date: 08/03/18 18:48:00 CDT, Stop date: 08/03/18 18:48:00 CDT Allergies, Adverse Reactions, Alerts Substance Category Reaction Severity Reaction Status Date Comments Source type Reported No Known Assertion Drug [facility] Medication allergy Medical Allergies Center Immunizations Immunization Date Site Status Last Updated Comments Source Given influenza virus Right completed Hernandez [facility] vaccine, 8 [facility] Center diphtheria/pertus Right completed Rc [facility] sis, acel/tetanus 8 [facility] adult Center Results Order Name Results Value Reference Date Interpretation Comments Source Range CHEM PANEL eGFR 105 12/01 Result Comment: The eGFR is calculated using the CKD-EPI formula. In most young, healthy individuals the eGFR will be >90 mL/ min/1.73m2. The eGFR declines with age. An eGFR of 60-89 may be normal in [facility] mL/min/1. some populations, particularly the elderly, for whom the CKD-EPI formula has not been extensively validated. Use of the eGFR is not recommended in the following populations: [address] Individuals with unstable creatinine concentrations, including patients and those with serious co-morbid conditions. Patients with extremes in muscle mass or diet. The data above are obtained from the National Kidney Disease Education Program (NKDEP) which additionally recommends that when the eGFR is used in patients with extremes of body mass index for purposes of drug dosing, the eGFR should be multiplied by the estimated BMI. CHEM PANEL Calcium Lvl 8.5 mg/dL 8.5 - 10.5 12/[address] CHEM PANEL AGAP 11.8 meq/L 10.0 - 12/01 [facility] 20.0 [facility] CHEM PANEL Glucose Lvl 97 mg/dL 70 - 99 12/[address] CHEM PANEL BUN 13 mg/dL 7 - 22 12/[address] CHEM PANEL Creatinine 0.86 mg/dL 0.50 - 12/01 [facility] Lvl 1.40 [facility] CHEM PANEL CO2 22 meq/L 24 - 32 12/[address] CHEM PANEL Chloride Lvl 107 meq/L 95 - 109 12/[address] CHEM PANEL Potassium 3.8 meq/L 3.5 - 5.1 12/01 [facility] CHEM PANEL Sodium Lvl 137 meq/L 135 - 145 12/[address] Hand wo Hand wo Exam: Left Hand wo contrast MRI 11/10 - OPID contrast contrast [facility] MRI Clinical Indication: S66.222D Laceration of extensor muscle, fascia and tendon of left thumb at wrist and hand level, subsequent encounter. Left hand crush injury July 2018 status post surgery. Hand pain, weakness and numbness. Comparison: Left hand radiographs 08/03/2018 Read by: Eb Reynolds MD Dictated Date/time: 11/11/18 09:28 Electronically Signed by: Eb Reynolds MD 11/11/18 10:10 FINAL REPORT TECHNIQUE: Multiplanar, multisequence noncontrast magnetic resonance imaging of the left hand. FINDINGS: Bones: Areas of linear susceptibility artifact corresponding with fixation screws are present within the bases of the 2nd and 3rd metacarpals and within the capitate and hamate bones with limited assess ment of hardware and directly adjacent structures. There is healing nondisplaced transverse fracture through the mid diaphysis of the 3rd metacarpal with surrounding callus formation and partial bony br idging. Nondisplaced oblique fracture in the distal diaphysis of the 4th metacarpal appears predominantly healed with minimal residual edema and fracture line. Linear tract is present across the interph alangeal joint of the thumb with corresponding low T1 signal and intermediate to high T2 signal within the head of the proximal phalanx and within the distal phalanx most consistent with previous remove d pin. No other acute fracture identified. Alignment is within normal limits without subluxation or dislocation. Soft tissues: No significant soft tissue edema. No focal fluid collection or mass. Muscles: Mild localized edema in the musculature directly adjacent to the proximal aspects of the 3rd and 4th metacarpals may be reactive or residual strain from prior injury. No significant muscle atrophy. Tendons: There is significant increased distance between the flexor pollicis longus tendon and the proximal phalanx of the thumb most suggestive of rupture of the annular ligaments (pulleys) of the flex or tendon sheath. The remaining tendons of the hand appear intact. No evidence of significant tendon tear, tendinopathy, or tenosynovitis. IMPRESSION: 1. Postsurgical changes in the hand with areas of susceptibility artifact corresponding to hardware within the bases of the 3rd and 4th metatarsals and within carpal bones. Additional evidence of previ ous removed pin across the IP joint of the thumb. 2. Findings most suggestive of rupture of the annular ligaments (pulleys) of the flexor tendon sheath in the thumb. Clinical correlation is advised. 3. Healing nondisplaced fracture of the 3rd metacarpal and nearly completely healed nondisplaced fracture of the 4th metacarpal. 4. Possible mild reactive edema versus residual strain in the musculature directly surrounding the 3rd and 4th metacarpals. SL: [id number] BLOOD BANK Antibody Negative 08/04 [facility] RESULTS [facility] (08/04/18 3:35 AM) [place] BLOOD BANK ABO/Rh O POS 08/04 [facility] RESULTS [facility] CHEM PANEL eGFR 75 08/04 Result Comment: The eGFR is calculated using the CKD-EPI formula. In most young, healthy individuals the eGFR will be >90 mL/ min/1.73m2. The eGFR declines with age. An eGFR of 60-89 may be normal in [facility] mL/min/1. some populations, particularly the elderly, for whom the CKD-EPI formula has not been extensively validated. Use of the eGFR is not recommended in the following populations: [address] Individuals with unstable creatinine concentrations, including patients and those with serious co-morbid conditions. Patients with extremes in muscle mass or diet. The data above are obtained from the National Kidney Disease Education Program (NKDEP) which additionally recommends that when the eGFR is used in patients with extremes of body mass index for purposes of drug dosing, the eGFR should be multiplied by the estimated BMI. CHEM PANEL Glucose Lvl 117 mg/dL 70 - 99 08/04 [facility] CHEM PANEL BUN 10 mg/dL 7 - 22 08/04 [facility] CHEM PANEL Sodium Lvl 139 meq/L 135 - 145 08/04 [facility] CHEM PANEL Creatinine 1.17 mg/dL 0.50 - 08/04 [facility] Lvl 1.40 [facility] CHEM PANEL Potassium 3.9 meq/L 3.5 - 5.1 08/04 [facility] Lvl [facility] CHEM PANEL Chloride Lvl 104 meq/L 95 - 109 08/04 [facility] CHEM PANEL Calcium Lvl 8.6 mg/dL 8.5 - 10.5 08/04 [facility] CHEM PANEL CO2 28 meq/L 24 - 32 08/04 [facility] CHEM PANEL AGAP 10.9 meq/L 10.0 - 08/04 [facility] 20.0 [facility] HEMATOLOGY Monocytes 10.1 % 2.0 - 12.0 10 /2017 [facility] HEMATOLOGY Eosinophils 0.3 % 0.0 - 4.0 08/04 /2017 [facility] HEMATOLOGY Lymphocytes 1.0 K/CMM 1.0 - 5.5 10 [place] # /2017 [facility] HEMATOLOGY Basophils 0.3 % 0.0 - 1.0 08/04 /2017 [facility] HEMATOLOGY Neutrophils 8.2 K/CMM 1.5 - 8.1 08/04 [facility] # /2017 [facility] HEMATOLOGY Monocytes # 1.0 K/CMM 0.0 - 0.8 08/04 /2017 [facility] HEMATOLOGY Segs 79.4 % 45.0 - 08/04 [place] 75.0 [facility] HEMATOLOGY Lymphocytes 9.9 % 20.0 - 08/04 [place] 40.0 [facility] HEMATOLOGY INR 1.00 0.85 - 08/04 1.17 [facility] HEMATOLOGY PTT 29.3 s 22.9 - 08/04 [place] 35[place]8 [facility] HEMATOLOGY PT 13.2 s 12.0 - 08/04 [place] 14.7 [facility] HEMATOLOGY Hgb 13.4 g/dL 14.0 - 08/04 18.0 [facility] HEMATOLOGY RBC 4.20 M/CMM 4.70 - 08/04 [place] 6.10 [facility] HEMATOLOGY WBC 10.3 K/CMM 3.7 - 10.4 08/04 /2017 [facility] HEMATOLOGY MPV 7.8 fL 7.4 - 10.4 08/04 [facility] HEMATOLOGY Platelet 251 K/CMM 133 - 450 08/04 [facility] HEMATOLOGY Hct 38.9 % 42.0 - 08/04 54.0 2018 [facility] HEMATOLOGY MCHC 34.4 g/dL 32.0 - 08/04 [place] 36[place]0 [facility] HEMATOLOGY RDW 13.2 % 11.5 - 08/04 [place] 14.5 2018 [facility] HEMATOLOGY MCV 92.7 fL 80.0 - 08/04 [facility] 94.0 [facility] HEMATOLOGY MCH 31.9 pg 27.0 - 08/04 [place] 31.0 [facility] Wrist Wrist EXAM: XR LEFT WRIST 3 VIEWS 08/03 - [facility] complete DX complete DX /2018 - Medical EXAM: XR LEFT FOREARM 2 VIEWS This report was dictated by a Child Welfare Worker/Fellow. I have personally reviewed the images as Center well as the Resident's interpretation and agree with the findings. EXAM: XR LEFT ELBOW 3 VIEWS Read by: Garrick Zamarripa MD Resident: Garrick Zamarripa MD Dictated Date/time: 08/03/18 20:15 Electronically Signed by: Adolfo Elizondo MD 08/03/18 21:18 FINAL REPORT DATE: 08/03/2018 6:48 PM CDT INDICATION: - pain COMPARISON: None. TECHNIQUE: 3 views of the wrist, 2 views of the forearm, 3 views of the elbow FINDINGS: Wrist: No acute fracture or malalignment is identified. Forearm: No acute fracture or malalignment is identified. Elbow: No acute fracture or malalignment is identified. No elbow joint effusion is present. The hand is partially visualized and appears unchanged compared to the prior dedicated hand radiographs from 1433 hours with persistently displaced, angulated 3rd metacarpal shaft fracture, mildly displ aced 4th metacarpal fracture, dislocated thumb distal interphalangeal joint , soft tissue emphysema and scattered radiopaque foreign bodies/debris. In addition, the space between the capitate and hamate bones is widened. 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 Soft tissues: No soft tissue abnormality is identified. IMPRESSION: 1. No acute fracture or malalignment of the left wrist, forearm and elbow. 2. 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 3. Other fractures of the left hand as described on the left hand report. Elbow 3 Elbow 3 EXAM: XR LEFT WRIST 3 VIEWS 08/03 - [place] views DX views DX /2018 - Medical EXAM: XR LEFT FOREARM 2 VIEWS This report was dictated by a Child Welfare Worker/Fellow. I have personally reviewed the images as Center well as the Resident's interpretation and agree with the findings. EXAM: XR LEFT ELBOW 3 VIEWS Read by: Garrick Zamarripa MD Resident: Garrick Zamarripa MD Dictated Date/time: 08/03/18 20:15 Electronically Signed by: Adolfo Elizondo MD 08/03/18 21:18 FINAL REPORT DATE: 08/03/2018 6:48 PM CDT INDICATION: - pain COMPARISON: None. TECHNIQUE: 3 views of the wrist, 2 views of the forearm, 3 views of the elbow FINDINGS: Wrist: No acute fracture or malalignment is identified. Forearm: No acute fracture or malalignment is identified. Elbow: No acute fracture or malalignment is identified. No elbow joint effusion is present. The hand is partially visualized and appears unchanged compared to the prior dedicated hand radiographs from 1433 hours with persistently displaced, angulated 3rd metacarpal shaft fracture, mildly displ aced 4th metacarpal fracture, dislocated thumb distal interphalangeal joint , soft tissue emphysema and scattered radiopaque foreign bodies/debris. In addition, the space between the capitate and hamate bones is widened. 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 Soft tissues: No soft tissue abnormality is identified. IMPRESSION: 1. No acute fracture or malalignment of the left wrist, forearm and elbow. 2. 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 3. Other fractures of the left hand as described on the left hand report. Forearm 2 Forearm 2 EXAM: XR LEFT WRIST 3 VIEWS 08/03 - [facility] views DX views /2017 - Medical EXAM: XR LEFT FOREARM 2 VIEWS This report was dictated by a Child Welfare Worker/Fellow. I have personally reviewed the images as Center well as the Resident's interpretation and agree with the findings. EXAM: XR LEFT ELBOW 3 VIEWS Read by: Garrick Zamarripa MD Resident: Garrick Zamarripa MD Dictated Date/time: 08/03/18 20:15 Electronically Signed by: Adolfo Elizondo MD 08/03/18 21:18 FINAL REPORT DATE: 08/03/2018 6:48 PM CDT INDICATION: - pain COMPARISON: None. TECHNIQUE: 3 views of the wrist, 2 views of the forearm, 3 views of the elbow FINDINGS: Wrist: No acute fracture or malalignment is identified. Forearm: No acute fracture or malalignment is identified. Elbow: No acute fracture or malalignment is identified. No elbow joint effusion is present. The hand is partially visualized and appears unchanged compared to the prior dedicated hand radiographs from 1433 hours with persistently displaced, angulated 3rd metacarpal shaft fracture, mildly displ aced 4th metacarpal fracture, dislocated thumb distal interphalangeal joint , soft tissue emphysema and scattered radiopaque foreign bodies/debris. In addition, the space between the capitate and hamate bones is widened. 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 Soft tissues: No soft tissue abnormality is identified. IMPRESSION: 1. No acute fracture or malalignment of the left wrist, forearm and elbow. 2. 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 3. Other fractures of the left hand as described on the left hand report. Vital Signs Vital Sign Value Date Comments Source Systolic (mm Hg) 100 12/01/2018 [facility] Diastolic (mm Hg) 67 12/01/2018 [facility] Respitory Rate 13 12/01/2018 [facility] Respitory Rate 15 12/01/2018 [facility] Systolic (mm Hg) 101 12/01/2018 [facility] Diastolic (mm Hg) 66 12/01/2018 [facility] Systolic (mm Hg) 110 12/01/2018 [facility] Diastolic (mm Hg) 68 12/01/2018 [facility] Respitory Rate 14 12/01/2018 [facility] BMI Calculated 27.5 12/01/2018 [facility] Weight 77.273 12/01/2018 [facility] Height 167.64 cm 12/01/2018 [facility] Heart Rate 79 12/01/2018 [facility] Weight 77.273 11/30/2018 [facility] BMI Calculated 27.5 11/30/2018 [facility] Height 167.64 cm 11/30/2018 [facility] Systolic (mm Hg) 111 08/05/2018 [facility] Diastolic (mm Hg) 79 08/05/2018 [facility] Respitory Rate 16 08/05/2018 [facility] Temperature Oral (F) 98.5 F 08/05/2018 [facility] Heart Rate 89 08/05/2018 [facility] Respitory Rate 16 08/05/2018 [facility] Temperature Oral (F) 98.6 F 08/05/2018 [facility] Systolic (mm Hg) 107 08/05/2018 [facility] Diastolic (mm Hg) 70 08/05/2018 [facility] Systolic (mm Hg) 109 08/05/2018 [facility] Diastolic (mm Hg) 76 08/05/2018 [facility] Respitory Rate 16 08/05/2018 [facility] Temperature Oral (F) 98.5 F 08/05/2018 [facility] Heart Rate 79 08/04/2018 [facility] Heart Rate 85 08/04/2018 [facility] Weight 72.727 08/04/2018 [facility] Height 170.1 cm 08/04/2018 [facility] BMI Calculated 25.14 08/04/2018 [facility] Height 170.18 cm 08/03/2018 [facility] BMI Calculated 25.11 08/03/2018 [facility] Weight 72.727 08/03/2018 [facility] Encounters Location Location Encounter Encounter Reason Attending ADM DC Status Source Details Type Number For Provider Date Date Visit [facility] [id number] 08/03 [facility] /2017 [facility] Day [id number] [place] 12/01 12/02 [facility] Procedures Procedure Code Date Perfomer Comments Source Assess fracture [id number] [facility] Total replacement [id number] [facility] left hip joint [facility]
--- OUTSIDE RECORDS SUMMARY | 2019-04-18 19:20 | XMS REPORT | Summary of Care ---
:1975 Author Name ZOË WILKINS M.D. Address Unavailable Unavailable , Care Team Providers Name Role Phone ZOË WILKINS M.D. Unavailable Unavailable Radha Willard Unavailable Unavailable Zoë Wilkins MD Unavailable Unavailable Unavailable Unavailable Unavailable Functional Status Name Dates Details Functional status health issues are not documented Status: Name Dates Details Cognitive status health issues are not documented Status: Problems Name Dates Details Pain of left hand (729.5, M79.642) Status: Active Intercarpal joint sprain, left, subsequent encounter (V58.89, S63.512D) Status: Active Laceration of extensor muscle, fascia and tendon of left thumb at wrist and hand level, subsequent encounter (S66.222D) Status: Active Closed displaced fracture of neck of fourth metacarpal bone of left hand with routine healing (V54.19, S62.335D) Status: Active Closed displaced fracture of shaft of third metacarpal bone of left hand with routine healing (V54.19, S62.323D) Status: Active Arthralgia of hand, right (719.44, M25.541) Status: Active Medications Name Dates Details Acetaminophen-Codeine #3 300-30 MG Oral Tablet TAKE 1 TABLET EVERY 6 TO 8 HOURS NEEDED FOR PAIN. Quantity: 50 Refills: 0 ZOË WILKINS M.D. Start : 27-Oct-2018 Active Allergies and Adverse Reactions Name Dates Details No Known Drug Allergies (Allergy) Status: Active Procedures Procedure Dates Details Post Op Promis 29 Survey Date: 24-Mar-2019 Immunization Name Dates Details Immunizations not documented Social History Name Dates Details Unknown if ever smoked Vital Signs Date Test Result Details No Known Vitals to report Results Date Description Value Details Results not documented Plan of Care Name Dates Details Planned Observations Planned Goals not documented Interventions Provided Labs/Procedures/ImagingPost Op Promis 29 Survey; To Be Done: 24 Mar 2019 Instructions Name Dates Details Instructions not documented Encounters Appointment; ZOË WILKINS M.D. On: 04-Aug-2018 11:00 Encounter Diagnosis: Problem not documented Appointment; ZOË WILKINS M.D. On: 19-Aug-2018 16:15 Encounter Diagnosis: Problem not documented Appointment; ZOË WILKINS M.D. On: 09-Sep-2018 14:30 Encounter Diagnosis: Problem not documented Appointment; ZOË WILKINS M.D. On: 12-Oct-2018 14:45 Encounter Diagnosis: Problem not documented Appointment; ZOË WILKINS M.D. On: 23-Nov-2018 10:30 Encounter Diagnosis: Problem not documented Appointment; ZOË WILKINS M.D. On: 01-Dec-2018 7:00 Encounter Diagnosis: Problem not documented Appointment; LYNDSEY GEORGE NP On: 09-Dec-2018 14:45 Encounter Diagnosis: Problem not documented Appointment; LYNDSEY GEORGE NP On: 16-Dec-2018 16:30 Encounter Diagnosis: Problem not documented Appointment; LYNDSEY GEORGE NP On: 27-Jan-2019 16:15 Encounter Diagnosis: Problem not documented
--- OUTSIDE RECORDS SUMMARY | 2019-04-18 19:20 | XMS REPORT | Summary of Care ---
:1975 Author Organization [facility] Address [address] [place] [id number]- Encounter HQ Maicontr_poppy(FIN) [phone] Date(s): 08/03/18 - 08/05/[address] Professional Services provided by [facility] [place] [address]- Encounter Diagnosis Crushing injury of left hand, initial encounter (Final) - 08/26/18 Nondisplaced fracture of left radial styloid process, initial encounter for closed fracture (Final) - Displaced fracture of shaft of third metacarpal bone, left hand, initial encounter for open fracture (Final) - Laceration of extensor muscle, fascia and tendon of left thumb at wrist and hand level, initial encounter (Final) - Dislocation of interphalangeal joint of left thumb, initial encounter (Final) - Crushing injury of left middle finger, initial encounter (Final) - Crushing injury of left ring finger, initial encounter (Final) - Crushing injury of left thumb, initial encounter (Final) - Nondisplaced fracture of neck of fourth metacarpal bone, left hand, initial encounter for closed fracture (Final) - Caught, crushed, jammed, or pinched between moving objects, initial encounter ( Final) - Discharge Disposition: Home or Self Care Attending Physician: Ludin Hines MD Admitting Physician: Ludin Hines MD Referring Physician: Baldev Chau MD Vital Signs Most recent to oldest 1 2 3 [Reference Range]: Height 170.1 cm 170.18 cm (08/04/18 4:10 AM) (08/03/18 6:03 PM) Temperature Oral 98.5 DegF 98.6 DegF 98.5 DegF [96.4-99.1 DegF] (08/05/18 7:46 AM) (08/05/18 3:47 AM) (08/04/18 11:39 PM) Blood Pressure 111/79 mmHg 107/70 mmHg 109/76 mmHg [90-140/60-90 mmHg] (08/05/18 7:46 AM) (08/05/18 3:47 AM) (08/04/18 11:39 PM ) Respiratory Rate [14-20 16 BRMIN 16 BRMIN 16 BRMIN BRMIN] (08/05/18 7:46 AM) (08/05/18 3:47 AM) (08/04/18 11:39 PM) Peripheral Pulse Rate 89 bpm 79 bpm 85 bpm [60-100 bpm] (08/05/18 7:46 AM) (08/04/18 11:36 AM) (08/04/18 8:01 AM) Weight 72.727 kg 72.727 kg (08/04/18 4:10 AM) (08/03/18 6:03 PM) Body Mass Index 25.14 m2 25.11 m2 (08/04/18 4:10 AM) (08/03/18 6:03 PM) Problem List No data available for this section Allergies, Adverse Reactions, Alerts No Known Medication Allergies Medications acetaminophen 1,000 mg, 2 tab, Route: PO, Drug form: TAB, Q6Hnow, Dosing Weight 72.727, kg, Start date: 08/04/18 10:00:00 CDT, Duration: 30 day, Stop date: 09/03/18 4:00: 00 ENERGY ATTORNEY Notes: Max acetaminophen 4000 mg/day (4 gm/day). (Same as: Tylenol Extra Strength) Start Date: 08/04/18 Stop Date: 08/05/18 Status: Discontinuedacetaminophen 1,000 mg, 2 tab, Route: PO, Drug form: TAB, Q6H, Dosing Weight 72.727, kg, Start date: 08/04/18 5:48:00 CDT, Duration: 3 day, Stop date: 08/07/18 0:00:00 CDT Notes: Max acetaminophen 4000 mg/day (4 gm/day). (Same as: Tylenol Extra Strength) Start Date: 08/04/18 Stop Date: 08/04/18 Status: Discontinuedacetaminophen (ANES) Route: IV, Drug form: INJ, ONCE, Stop date: 08/04/18 16:57:00 CDT Start Date: 08/04/18 Stop Date: 08/04/18 Status: CompletedAl hydroxide/Mg hydroxide/simethicone 200 mg-200 mg-20 mg/5 mL oral suspension 30 mL, Route: PO, Drug Form: SUSP, Dosing Weight 72.727, kg, Q4H, PRN Indigestion, Start date: 08/04/18 9:02:00 CDT, Duration: 30 day, Stop date: 07/13 9:01:00 ENERGY ATTORNEY Notes: (aluminum hydroxide-magnesium hyd-simethicone [phone]/5ml 30 ml ud JENNY) Start Date: 08/04/18 Stop Date: 08/05/18 Status: DiscontinuedAncef 2 gm, 20 mL, Route: IV, Drug form: SOLN, Q8Hnow, Dosing Weight 72.727, kg, Start date: 08/03/18 20:00:00 CDT, Duration: 30 day, Stop date: 09/02/18 16:00: 00 ENERGY ATTORNEY, ABX Indication: Open Wound Prophylaxis Notes: (Same as Ancef) Start Date: 08/03/18 Stop Date: 08/04/18 Status: DiscontinuedAncef 2 gm, 20 mL, Route: IVPB, Drug form: SOLN, Q8H, Dosing Weight 72.727, kg, Start date: 08/04/18 23:00:00 CDT, Duration: 2 doses or times, Stop date: 08/05/18 7: 00:00 CDT, ABX Indication: Surgical Prophylaxis Notes: (Same as Ancef) Start Date: 08/04/18 Stop Date: 08/05/18 Status: CompletedAncef 2 gm, 20 mL, Route: IVP, Drug form: SOLN, Q8Hnow, Dosing Weight 72.727, kg, Start date: 08/04/18 14:00:00 CDT, Duration: 30 day, Stop date: 09/03/18 6:00: 00 ENERGY ATTORNEY, ABX Indication: Open Wound Prophylaxis Notes: (Same as Ancef) Start Date: 08/04/18 Stop Date: 08/04/18 Status: DiscontinuedANES flumazenil 0.2 mg, Route: IVP, PRN, Dosing Weight 72.727, kg, PRN Benzodiazepine Reversal, Initial dose, Start date: 08/04/18 16:05:00 CDT, Duration: 30 day, Stop date: 15:04:00 ENERGY ATTORNEY Start Date: 08/04/18 Stop Date: 08/04/18 Status: DiscontinuedANES labetalol 10 mg, Route: IVP, Q5Min, Dosing Weight 72.727, kg, PRN Elevated BP, Start date : 08/04/18 16:05:00 CDT, Duration: 5 doses or times, Stop date: Limited # of times Start Date: 08/04/18 Stop Date: 08/04/18 Status: DiscontinuedANES naloxone 0.4 mg, Route: IVP, Q2MIN, Dosing Weight 72.727, kg, PRN Narcotic Reversal, Start date: 08/04/18 16:05:00 CDT, Duration: 8 doses or times, Stop date: Limited # of times Start Date: 08/04/18 Stop Date: 08/04/18 Status: DiscontinuedANES ondansetron 4 mg, Route: IVP, ONCE, Dosing Weight 72.727, kg, PRN Nausea & Vomiting, Start date: 08/04/18 16:05:00 CDT Start Date: 08/04/18 Stop Date: 08/04/18 Status: DiscontinuedANES oxyCODONE 10 mg, Route: PO, Drug form: TAB, Q4H, Dosing Weight 72.727, kg, PRN Pain Score 7-10, Start date: 08/04/18 16:05:00 CDT, Duration: 30 day, Stop date: 09/03/18 16:04:00 ENERGY ATTORNEY Start Date: 08/04/18 Stop Date: 08/04/18 Status: DiscontinuedANES oxyCODONE 5 mg, Route: PO, Drug form: TAB, Q4H, Dosing Weight 72.727, kg, PRN Pain Score 4 -6, Start date: 08/04/18 16:05:00 CDT, Duration: 30 day, Stop date: 09/03/18 16: 04:00 ENERGY ATTORNEY Start Date: 08/04/18 Stop Date: 08/04/18 Status: DiscontinuedBactrim DS 800 mg- 160 mg oral tablet 1 tab, PO, BID, X 7 day, # 14 tab, 0 Refill(s) Start Date: 08/04/18 Stop Date: 08/11/18 Status: CompletedceFAZolin (ANES) Route: IV, Drug form: INJ, ONCE, Stop date: 08/04/18 15:22:00 CDT Start Date: 08/04/18 Stop Date: 08/04/18 Status: CompletedDilaudid 1 mg, Route: IVP, Drug form: INJ, ONCE, Dosing Weight 72.727, kg, Priority: STAT , Start date: 08/03/18 21:44:00 CDT, Stop date: 08/03/18 21:44:00 CDT Notes: Same as Dilaudid Start Date: 08/03/18 Stop Date: 08/03/18 Status: CompleteddiphenhydrAMINE 12.5 mg, 5 mL, Route: PO, Drug form: LIQ, Q6H, Dosing Weight 72.727, kg, PRN Itching, Start date: 08/04/18 9:02:00 CDT, Duration: 30 day, Stop date: 9:01:00 ENERGY ATTORNEY Notes: (Same as: Benadryl) Start Date: 08/04/18 Stop Date: 08/05/18 Status: DiscontinueddiphenhydrAMINE 12.5 mg, 5 mL, Route: PO, Drug form: LIQ, Q6H, Dosing Weight 72.727, kg, PRN Itching, Start date: 08/04/18 5:48:00 CDT, Duration: 30 day, Stop date: 5:47:00 ENERGY ATTORNEY Notes: (Same as: Benadryl) Start Date: 08/04/18 Stop Date: 08/04/18 Status: Discontinueddocusate 100 mg, 1 cap, Route: PO, Drug form: CAP, BID, Dosing Weight 72.727, kg, Start date: 08/04/18 17:00:00 CDT, Duration: 30 day, Stop date: 09/03/18 9:00:00 ENERGY ATTORNEY Notes: (Same as: Colace) (Do Not Crush) Start Date: 08/04/18 Stop Date: 08/05/18 Status: DiscontinuedfentaNYL (ANES) Route: IV, Drug form: INJ, ONCE, Stop date: 08/04/18 15:12:00 CDT Start Date: 08/04/18 Stop Date: 08/04/18 Status: Completedgabapentin 300 mg, 1 cap, Route: PO, Drug form: CAP, Q8Hnow, Dosing Weight 72.727, kg, Start date: 08/04/18 10:00:00 CDT, Duration: 30 day, Stop date: 09/03/18 2:00: 00 ENERGY ATTORNEY Notes: (Same as: Neurontin) Start Date: 08/04/18 Stop Date: 08/05/18 Status: Discontinuedgentamicin 363.635 mg, Route: IVPB, Drug form: INJ, ONCE, Dosing Weight 72.727, kg, Priority: STAT, Start date:08/03/18 19:54:00 CDT, Stop date: 08/03/18 19:54:00 CDT Start Date: 08/03/18 Stop Date: 08/03/18 Status: Completedglycopyrrolate (ANES) Route: IV, Drug form: INJ, ONCE, Stop date: 08/04/18 16:52:00 CDT Start Date: 08/04/18 Stop Date: 08/04/18 Status: CompletedketOROLAC 30 mg, 1 mL, Route: IVP, Drug form: INJ, Q6Hnow, Dosing Weight 72.727, kg, Start date: 08/04/18 10:00:00 CDT, Duration: 24 hr, Stop date: 08/05/18 4:00:00 CDT Notes: (Same as:Toradol) IV bolus must be given >15 seconds. Give IM administration slowly and deeply into the muscle.Not for use > 4 days MEDICATION WASTE Product Size: 30 mgProduct Wasted: ___ mg Start Date: 08/04/18 Stop Date: 08/05/18 Status: CompletedLactated Ringers Injection IV (ANES) 1000 mL Route: IV, Total Volume: 1,000, Start date: 08/04/18 14:34:00 CDT, Stop date: 15:34:00 CDT Start Date: 08/04/18 Stop Date: 08/04/18 Status: Completedlidocaine (ANES) Route: IV, Drug form: INJ, ONCE, Stop date: 08/04/18 15:12:00 CDT Start Date: 08/04/18 Stop Date: 08/04/18 Status: Completedmelatonin 3 mg, 1 tab, Route: PO, Drug form: TAB, Bedtime, Dosing Weight 72.727, kg, PRN Insomnia, Start date:08/04/18 9:02:00 CDT, Duration: 30 day, Stop date: 9:01:00 ENERGY ATTORNEY Notes: (Same as: Melatonin) Start Date: 08/04/18 Stop Date: 08/05/18 Status: Discontinuedmethocarbamol 1,000 mg, 2 tab, Route: PO, Drug form: TAB, Q8H, Dosing Weight 72.727, kg, PRN Muscle Spasms, Start date: 08/04/18 9:02:00 CDT, Duration: 30 day, Stop date: 9:01:00 ENERGY ATTORNEY Notes: (Same as:Robaxin) Start Date: 08/04/18 Stop Date: 08/05/18 Status: Discontinuedmidazolam (ANES) Route: IV, Drug form: SOLN, ONCE, Stop date: 08/04/18 15:12:00 CDT Start Date: 08/04/18 Stop Date: 08/04/18 Status: Completedmorphine Sulfate 2 mg, 0.5 mL, Route: IVP, Drug form: SOLN, Q4H, Dosing Weight 72.727, kg, PRN Pain Score 7-10, Startdate: 08/04/18 9:02:00 CDT, Duration: 30 day, Stop date: 09/03/18 9:01:00 ENERGY ATTORNEY Notes: (Same as:MORPhine Sulfate) Start Date: 08/04/18 Stop Date: 08/05/18 Status: Discontinuedmorphine Sulfate 4 mg, 1 mL, Route: IVP, Drug form: SOLN, ONCE, Dosing Weight 72.727, kg, Priority: STAT, Start date:08/04/18 1:05:00 CDT, Stop date: 08/04/18 1:05:00 CDT Notes: (Same as:MORPhine Sulfate) Start Date: 08/04/18 Stop Date: 08/04/18 Status: Completedmorphine Sulfate 4 mg, Route: IVP, ONCE, Dosing Weight 72.727, kg, Priority: STAT, Start date: 18:48:00 CDT,Stop date: 08/03/18 18:48:00 CDT Start Date: 08/03/18 Stop Date: 08/03/18 Status: Completedneostigmine (ANES) Route: IV, Drug form: INJ, ONCE, Stop date: 08/04/18 16:52:00 CDT Start Date: 08/04/18 Stop Date: 08/04/18 Status: Completedondansetron 4 mg, 2 mL, Route: IVP, Drug form: INJ, Q8H, Dosing Weight 72.727, kg, PRN Nausea & Vomiting, Start date: 08/04/18 9:02:00 CDT, Duration: 30 day, Stop date: 09/03/18 9:01:00 ENERGY ATTORNEY Notes: (Same as: Love) MEDICATION WASTE Product Size: 4 mgProduct Wasted: ___ mg Start Date: 08/04/18 Stop Date: 08/05/18 Status: Discontinuedondansetron 4 mg, Route: IVP, Drug form: INJ, ONCE, Dosing Weight 72.727, kg, Priority: STAT , Start date: 08/03/18 18:48:00 CDT, Stop date: 08/03/18 18:48:00 CDT Start Date: 08/03/18 Stop Date: 08/03/18 Status: CompletedoxyCODONE 5 mg immediate release 10 mg, 2 tab, Route: PO, Drug form: TAB, Q4H, Dosing Weight 72.727, kg, PRN Pain Score 7-10, Start date: 08/04/18 9:02:00 CDT, Duration: 30 day, Stop date: 09/03/18 9:01:00 ENERGY ATTORNEY Notes: (Same as: Roxicodone) Start Date: 08/04/18 Stop Date: 08/05/18 Status: Discontinuedpregabalin 100 mg, 1 cap, Route: PO, Drug form: CAP, Q8H, Dosing Weight 72.727, kg, Priority: NOW, Start date: 08/04/18 5:48:00 CDT, Duration: 48 hr, Stop date: 10/12 0:00:00 CDT Notes: (Same as: Lyrica) Start Date: 08/04/18 Stop Date: 08/04/18 Status: Discontinuedpropofol (ANES) Route: IV, Drug form: INJ, ONCE, Stop date: 08/04/18 15:12:00 CDT Start Date: 08/04/18 Stop Date: 08/04/18 Status: Completedrocuronium (ANES) Route: IV, Drug form: INJ, ONCE, Stop date: 08/04/18 15:12:00 CDT Start Date: 08/04/18 Stop Date: 08/04/18 Status: CompletedSodium Chloride 0.9% (titrate) 250 mL 250 mL, Rate: To prime line and flush remaining blood products., Dosing Weight 72.727, kg, Route: IV, Total Volume: 250, Start Date: 08/03/18 18:49:00 CDT, Duration: 30 day, Stop date: 09/02/18 17:48:00 ENERGY ATTORNEY, Replace Every: 24 hr Start Date: 08/03/18 Stop Date: 08/03/18 Status: Discontinuedtramadol 100 mg, 2 tab, Route: PO, Drug form: TAB, Q6H, Dosing Weight 72.727, kg, Start date: 08/04/18 12:00:00 CDT, Duration: 30 day, Stop date: 09/03/18 6:00:00 ENERGY ATTORNEY Notes: Not to exceed 400mg/day. (Same As: Ultram) Start Date: 08/04/18 Stop Date: 08/05/18 Status: Discontinuedtramadol 50 mg, 1 tab, Route: PO, Drug form: TAB, Q6H, Dosing Weight 72.727, kg, For CrCl < 30 mL/min, Priority: NOW, Start date: 08/04/18 5:48:00 CDT, Duration: 30 day, Stop date: 09/03/18 0:00:00 ENERGY ATTORNEY Notes: Not to exceed 400mg/day. (Same As: Ultram) Start Date: 08/04/18 Stop Date: 08/04/18 Status: Discontinuedtramadol 50 mg oral tablet 50 mg=1 tab, PO, Q4H, PRN Pain, X 10 day, # 60 tab, 0 Refill(s) Start Date: 08/04/18 Stop Date: 08/14/18 Status: CompletedTylenol with Codeine #3 oral tablet 1 tab, PO, Q6H, PRN Pain, X 15 day, # 60 tab, 0 Refill(s) Start Date: 08/04/18 Stop Date: 08/19/18 Status: CompletedZofran 4 mg, 2 mL, Route: IVP, Drug form: INJ, ONCE, Dosing Weight 72.727, kg, Priority : STAT, Start date: 08/04/18 1:05:00 CDT, Stop date: 08/04/18 1:05:00 CDT Notes: (Same as: Zofran) MEDICATION WASTE Product Size: 4 mgProduct Wasted: ___ mg Start Date: 08/04/18 Stop Date: 08/04/18 Status: Completed Results Most recent to oldest [Reference Range]: 1 Neutrophils # [1.5-8.1 K/CMM] 8.2 K/CMM *HI* (08/04/18 12:35 AM) Lymphocytes # [1.0-5.5 K/CMM] 1.0 K/CMM (08/04/18 12:35 AM) Monocytes # [0.0-0.8 K/CMM] 1.0 K/CMM *HI* (08/04/18 12:35 AM) eGFR 75 mL/min/1.73m2 1 *NA* (08/04/18 12:35 AM) ABO/Rh O POS *Unknown* (08/04/18 3:35 AM) Antibody Scrn Negative (08/04/18 3:35 AM) AGAP [10.0-20.0 mEq/L] 10.9 mEq/L (08/04/18 12:35 AM) Basophils [0.0-1.0 %] 0.3 % (08/04/18 12:35 AM) BUN [7-22 mg/dL] 10 mg/dL (08/04/18 12:35 AM) Calcium Lvl [8.5-10.5 mg/dL] 8.6 mg/dL (08/04/18 12:35 AM) Chloride Lvl [95-109 mEq/L] 104 mEq/L (08/04/18:35 AM) CO2 [24-32 mEq/L] 28 mEq/L (08/04/18:35 AM) Creatinine Lvl [0.50-1.40 mg/dL] 1.17 mg/dL (08/04/18:35 AM) Eosinophils [0.0-4.0 %] 0.3 % (08/04/1835 AM) Glucose Lvl [70-99 mg/dL] 117 mg/dL *HI* (08/04/1835 AM) Hct [42.0-54.0 %] 38.9 % *LOW* (08/04/18:35 AM) Hgb [14.0-18.0 g/dL] 13.4 g/dL *LOW* (08/04/18:35 AM) INR [0.85-1.17] 1.00 (08/04/18:35 AM) Potassium Lvl [3.5-5.1 mEq/L] 3.9 mEq/L (08/04/18 12:35 AM) Lymphocytes [20.0-40.0 %] 9.9 % *LOW* (08/04/18:35 AM) MCH [27.0-31.0 pg] 31.9 pg *HI* (08/04/18 12:35 AM) MCHC [32.0-36.0 g/dL] 34.4 g/dL (08/04/18:35 AM) MCV [80.0-94.0 fL] 92.7 fL (08/04/18:35 AM) Monocytes [2.0-12.0 %] 10.1 % (08/04/18 12:35 AM) MPV [7.4-10.4 fL] 7.8 fL (08/04/18:35 AM) Sodium Lvl [135-145 mEq/L] 139 mEq/L (08/04/18 12:35 AM) Platelet [133-450 K/CMM] 251 K/CMM (08/04/18:35 AM) Segs [45.0-75.0 %] 79.4 % *HI* (08/04/18 12:35 AM) PT [12.0-14.7 seconds] 13.2 seconds (08/04/18 12:35 AM) PTT [22.9-35.8 seconds] 29.3 seconds (08/04/18 12:35 AM) RBC [4.70-6.10 M/CMM] 4.20 M/CMM *LOW* (08/04/18 12:35 AM) RDW [11.5-14.5 %] 13.2 % (08/04/18 12:35 AM) WBC [3.7-10.4 K/CMM] 10.3 K/CMM (08/04/18 12:35 AM) 1Result Comment: The eGFR is calculated using the CKD-EPI formula. In most young , healthy individualsthe eGFR will be >90 mL/min/1.73m2. The eGFR declines with age. An eGFR of 60-89 may be normal insome populations, particularly the elderly, for whom the CKD-EPI formula has not been extensively validated. Use of the eGFR is not recommended in the following populations: Individuals with unstable creatinine concentrations, including patients and those with serious co-morbid conditions. Patients with extremes in muscle mass or diet. The data above are obtained from the National Kidney Disease Education Program ( NKDEP) which additionally recommends that when the eGFR is used in patients with extremes of body mass index for purposesof drug dosing, the eGFR should be multiplied by the estimated BMI. Immunizations Given and Recorded Vaccine Date Status Refusal Reason influenza virus vaccine, inactivated 08/05/18 Given diphtheria/pertussis, acel/tetanus adult 08/03/18 Given Procedures Procedure Date Related Diagnosis Body Site Status Assess fracture care Completed Total replacement of left hip joint Completed Social History Social History Type Response Substance Abuse Use: None. Alcohol Never Smoking Status Never smoker; Exposure to Tobacco Smoke None; Cigarette Smoking Last 365 Days No; Reg Smoking Cessation Counseling No entered on: 11/30/18 Assessment and Plan Extracted from: Title: ORS progress note Author: Eddie Mejia MD Date: 08/05/18 ORS Hand Daily Progress Note SUBJECTIVE doing well overnight, pain controlled, ready to return home today. OBJECTIVE Vitals Tmp(F) Pulse BP RR SpO2 FIO2 08/05 07:46 98.5 89 111/79 16 98 --- 08/05 03:47 98.6 85 107/70 16 98 --- 08/04 23:39 98.5 96 109/76 16 98 --- 08/04 18:54 98.4 99 129/86 16 94 --- 08/04 18:15 ---- 80 134/87 19 98 --- 24 Hr Tmax: 99.6F (37.56c) at 08/04 17:45 Vital Signs are the last 5 in the past 48 hours. Hgb: 13.4 g/dL Low (08/04/18 00:35:00) Hct: 38.9 % Low (08/04/18 00:35:00) LUE: Inspection: Dressing c/d/i, compartments s/c, no pain with passive stretch of EDC/FDP Sensation: SILT m/r/u nerve at hand, endorses globally diminished sensation compared to contralateral hand Motor: + FDP all fingers, intact hand intrinsics Vascular: BCR all fingers <2 sec. ASSESSMENT & PLAN 43M s/p ORPP 2nd MC, ORIF Intercarpal joints, repair EPL tendon, CRPP thumb IP L hand on 08/04 - WBS: NWB LUE - DVT PPx: MARCIA/SCD - Pain Control: MMP control per primary - OT after first follow up appointment - Dispo: follow up with Dr. Hines in 2 weeks after discharge. - Please page [phone] for any questions or concerns Eddie Mejia MD PGY-3 MSO [id number] Extracted from: Title: Clinical Document Author: Duncan Garcia MD Date: 08/05 Orthopaedic Surgery Service Discharge Summary Admit Date: 08/03/18 Discharge Date: 08/05/18 Admitting Physician of Record: Ludin Hines MD Admitting Diagnosis: L thumb IP dislocation, 3rd and 4th MC fx, EPL rupture Discharge Diagnosis: L thumb IP dislocation, 3rd and 4th MC fx, EPL rupture Surgeries/Procedures: L hand I&D, CRPP thumb/3rd/4th MC, repair EPL Hospital Course: Pt admitted 08/03 and underwent the above procedures on 08/04. Pt tolerated the procedure well, and cleared PACU protocol for floor transfer. Overnight his pain was controlled, he was tolerating PO intake, and was d/c home 08/05/18 Physical exam: Gen AAOx3 Resp Stable on RA LUE Splint c/d/i. Sensation intact to exposed digits with BCR <2sec Discharge Disposition: home Discharge Condition: stable Discharge Diet: Regular Discharge Activity: no strenous activity, no use left upper extremity Discharge Medications: See MAR Pending Procedures: None Special Instructions: None Wound care- keep all dressing clean and dry. No driving until cleared by physician. Notify MD or return to ED if you develop fever >101, severe nausea/vomiting, severe pain uncontrolled with medication, signs of infection of surrounding wounds Follow Up: [address] Ludin Garcia M.D. ([facility]) Orthopaedic Surgery PGY-4 Extracted from: Title: ORS HAND TRAUMA INITIAL Author: Hannah Onofre Date: 08/03 CONSULT H&P ORS Hand Trauma Consult History and Physical Reason for Consult: L hand fxs and tendon injuries Source of Consult: ER Date of Service: 08/03/18 Consulting Physician: Annie Vilchis [facility] Attending: Flora CC: L hand pain HPI: The pt is a 43 y/o M s/p crush to L hand by iron pole while at work sustaining a L thumb laceration with open thumb DIP dislocation, L open 3rd and 4th displaced MC shaft fxs, L 4th finger extensor tendon injury, L nondisplaced radial styloid fx, and possible L carpus ligamentous injury at approximately 130pm. Reports severe pain in L hand worse with ROM and palpation and improved with rest. Pierce sferred from an OSH for higher level care. Denies other trauma/injury, pain or loss of ROM in other extremities. Reports numbness in L thumb, otherwise denies radiation, N/T, or other paresthesias. PAMELA: 130pm. PMH: Denies PSH: Sam COLEMAN (1998) Medications: Denies Allergies: NKDA Review of Systems: Gen: Denies fever/chills/night sweats. HEENT: Denies vision change, sore throat, ulcers in mouth, epistaxis CV: Denies CP, Palpitations Resp: Denies SOB, wheezing, cough GI: Denies Abd pain, N/V/D/Constipation. Denies incontinence. : Denies urinary retention, urgency, burning, discharge. Back/Spine: Denies pain. Neuro: Denies N/T, other paresthesias in extremities. Endocrine: Denies recent weight changes, heat/cold insensitivity. Psych: Denies depression, anxiety, labile mood, suicidal/homicidal ideation. Musculoskeletal: Denies all but HPI. All other systems negative except HPI. Social History: Tobacco: Denies EtOH: 3 beers daily Illicit drugs: Denies RHD. 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 Family History: [place] Vitals: Systolic Blood Pressure : 124 mmHg Diastolic Blood Pressure : 88 mmHg Peripheral Pulse Rate : 115 bpm (HI) Respiratory Rate : 20 BRMIN SpO2 percent : 98 % ED Temperature Taken : Oral Temperature Oral : 98.9 DegF Exam: Gen: A&O x 3. Anxious, but cooperative. LUE: Inspection: + Deformity/dislocation of thumb PIP with exposed articular cap and visible tendon injury. +Slight swan neck deformity to 4th digit, otherwise normal cascade. +3.0 cm circumferential wound a round DIP of thumb. +2.0 cm traumatic wound at dorsal 4th MC that probes to bone. + 1.0 cm laceration at dorsum of hand. 5.0 cm longitudinal laceration between 3rd and 4th digits with exposed tendon and probes to bone. Neg. pulsatile bleeding. Neg. erythema, warmth, swelling, ecchymosis. Sensation: sensation intact to light touch m/u/r nerves; 2-pt disrimination intact all digits Motor: intact AIN/PIN/Ulnar in hand; 5/5 Wrist flex/ext; Elbow flex/ext; Shoulder ABd,Flex 3/5 4th finger extension and 0/5 thumb otherwise FDS/FDP and extensors intact all digits. Vascular: radial/ulnar pulse palpated, BCR all fingers <2 sec.; neg. Rm test. dopplerable signal from the palmar arch RUE: Inspection: no gross abnormality, no crepitis, no tenderness to palpation Sensation: sensation intact to light touch m/r/u n Motor: intact AIN/PIN/Ulnar in hand; 5/5 Wrist flex/ext; Elbow flex/ext; Shoulder ABd,Flex Vascular: 2+ radial pulse palpated, BCR all fingers <2 sec. Imaging: L hand x-rays: persistently displaced, angulated 3rd metacarpal shaft fracture , mildly displaced 4th metacarpal fracture, dislocated thumb distal interphalangeal joint, soft tissue emphysema and scattered radiopaque foreign bodies/debris. In addition, the space between the capitate and hamate bones is widened. 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 A/P: 43 y/o M c L thumb partial traumatic amputation, L open 3rd-4th MC shaft fxs, L 4th finger extensor tendon injury, L hand carpal row ligamentous injury, L hand lacerations, and L nondisplaced intra-articular radial styloid fx s/p crush - Weight bearing status: NWB LUE - Antibiotics: IV Ancef q8hrs, Td and one dose gentamycin given - Pain control - Volar resting and thumb spica splint applied LUE; post-splint neurovasc exam intact - Dressings: keep c/d/i - Pre-op labs - Marked, consented - Dispo: Admit to ORS, plan for I&D, possible tendon/nerve/artery/ligament repair, possible CR and ORPP, closure L hand; will continue to follow while in- house
--- OUTSIDE RECORDS SUMMARY | 2019-04-18 19:20 | XMS REPORT | Summary of Care ---
:1975 Author Organization [facility] Address [address], [place] [address]- Encounter HQ Charbelr_poppy(FIN) [id number] Date(s): 12/01/18 - 12/01/[address] [address]- Discharge Disposition: Home or Self Care Attending Physician: Ludin Hines MD Admitting Physician: Ludin Hines MD Referring Physician: Ludin Hines MD Vital Signs Most recent to oldest [Reference 1 2 3 Range]: Height 167.64 cm 167.64 cm (12/01/18 8:50 AM) (11/30/18 1:15 PM) Blood Pressure [90-140/60-90 100/67 mmHg 101/66 mmHg 110/68 mmHg mmHg] (12/01/18 1:20 PM) (12/01/18 1:00 PM) (12/01/18 12:30 PM) Respiratory Rate [14-20 BRMIN] 13 BRMIN 15 BRMIN 14 BRMIN *LOW* (12/01/18 1:00 PM) (12/01/18 12:30 PM) (12/01/18 1:20 PM) Peripheral Pulse Rate [60-100 79 bpm bpm] (12/01/18 8:15 AM) Weight 77.273 kg 77.273 kg (12/01/18 8:50 AM) (11/30/18 1:15 PM) Body Mass Index 27.5 m2 27.5 m2 (12/01/18 8:50 AM) (11/30/18 1:15 PM) Problem List No data available for this section Allergies, Adverse Reactions, Alerts Substance Reaction Severity Status NKDA Active Medications acetaminophen 1,000 mg, Route: PO, ONCE, Dosing Weight 77.273, kg, PRN Pain 4-6/Temp > 100.4 F, Start date: 12/01/18 12:45:00 DIE FORGER Start Date: 12/01/18 Stop Date: 12/01/18 Status: CompletedAleve 220 mg, PO, 0 Refill(s) Start Date: 11/30/18 Status: OrderedANES fentaNYL 25 microgram, 0.5 mL, Route: IVP, Drug form: INJ, Q5Min, Dosing Weight 77.273, kg, PRN Pain Score 4-6, Priority: Routine, Start date: 12/01/18 12:37:00 DIE FORGER, Duration: 4 doses or times, Stop date: Limited # of times Notes: (Same as: Sublimaze) Preservative free. Start Date: 12/01/18 Stop Date: 12/02/18 Status: DiscontinuedANES flumazenil 0.2 mg, 2 mL, Route: IVP, Drug form: INJ, PRN, Dosing Weight 77.273, kg, PRN Benzodiazepine Reversal, Initial dose, Start date: 12/01/18 12:37:00 DIE FORGER, Duration: 1 day, Stop date: 12/02/18 12:36:00 DIE FORGER Notes: (Same as: Romazicon) Start Date: 12/01/18 Stop Date: 12/02/18 Status: DiscontinuedANES hydrALAZINE 10 mg, 0.5 mL, Route: IVP, Drug form: INJ, Q20Min, Dosing Weight 77.273, kg, PRN Elevated BP, Start date: 12/01/18 12:37:00 DIE FORGER, Duration: 2 doses or times, Stop date: Limited # of times Notes: (Same as: Apresoline)Push over 5 minutes Start Date: 12/01/18 Stop Date: 12/02/18 Status: DiscontinuedANES HYDROmorphone 0.5 mg, 0.25 mL, Route: IVP, Drug form: INJ, Q5Min, Dosing Weight 77.273, kg, PRN Pain Score 7-10, Start date: 12/01/18 12:37:00 DIE FORGER, Duration: 4 doses or times, Stop date: Limited # of times Notes: Same as Dilaudid Start Date: 12/01/18 Stop Date: 12/02/18 Status: DiscontinuedANES labetalol 10 mg, 2 mL, Route: IVP, Drug form: INJ, Q5Min, Dosing Weight 77.273, kg, PRN Elevated BP, Start date: 12/01/18 12:37:00 DIE FORGER, Duration: 5 doses or times, Stop date: Limited # of times Start Date: 12/01/18 Stop Date: 12/02/18 Status: DiscontinuedANES naloxone 0.4 mg, 1 mL, Route: IVP, Drug form: INJ, Q2MIN, Dosing Weight 77.273, kg, PRN Narcotic Reversal, Start date: 12/01/18 12:37:00 DIE FORGER, Duration: 8 doses or times , Stop date: Limited # of times Notes: Same as Narcan Start Date: 12/01/18 Stop Date: 12/02/18 Status: DiscontinuedANES ondansetron 4 mg, 2 mL, Route: IVP, Drug form: INJ, ONCE, Dosing Weight 77.273, kg, PRN Nausea & Vomiting, Start date: 12/01/18 12:37:00 DIE FORGER Notes: (Same as: Love) MEDICATION WASTE Product Size: 4 mgProduct Wasted: ___ mg Start Date: 12/01/18 Stop Date: 12/02/18 Status: DiscontinuedANES oxyCODONE 5 mg, 1 tab, Route: PO, Drug form: TAB, Q4H, Dosing Weight 77.273, kg, PRN Pain Score 4-6, Start date: 12/01/18 12:37:00 DIE FORGER, Duration: 1 day, Stop date: 12:36:00 DIE FORGER Notes: (Same as: Roxicodone) Start Date: 12/01/18 Stop Date: 12/02/18 Status: DiscontinuedceFAZolin (ANES) Route: IV, Drug form: INJ, ONCE, Stop date: 12/01/18 11:18:00 DIE FORGER Start Date: 12/01/18 Stop Date: 12/01/18 Status: CompletedfentaNYL (ANES) Route: IV, Drug form: INJ, ONCE, Stop date: 12/01/18 11:33:00 DIE FORGER Start Date: 12/01/18 Stop Date: 12/01/18 Status: CompletedketOROLAC (ANES) IV, ONCE Start Date: 12/01/18 Stop Date: 12/01/18 Status: CompletedLactated Ringers Injection IV (ANES) 1000 mL Route: IV, Total Volume: 1,000, Start date: 12/01/18 10:35:00 DIE FORGER, Stop date: 11:35:00 DIE FORGER Start Date: 12/01/18 Stop Date: 12/01/18 Status: Completedlidocaine (ANES) Route: IV, Drug form: INJ, ONCE, Stop date: 12/01/18 11:23:00 DIE FORGER Start Date: 12/01/18 Stop Date: 12/01/18 Status: Completedmidazolam (ANES) Route: IV, Drug form: SOLN, ONCE, Stop date: 12/01/18 11:13:00 DIE FORGER Start Date: 12/01/18 Stop Date: 12/01/18 Status: Completedondansetron (ANES) Route: IV, Drug form: INJ, ONCE, Stop date: 12/01/18 12:00:00 DIE FORGER Start Date: 12/01/18 Stop Date: 12/01/18 Status: Completedpropofol (ANES) Route: IV, Drug form: INJ, ONCE, Stop date: 12/01/18 11:23:00 DIE FORGER Start Date: 12/01/18 Stop Date: 12/01/18 Status: Completed Results ELECTROLYTES Most recent to oldest [Reference Range]: 1 Sodium Lvl [135-145 mEq/L] 137 mEq/L (12/01/18 8:29 AM) Potassium Lvl [3.5-5.1 mEq/L] 3.8 mEq/L (12/01/18 8:29 AM) Chloride Lvl [95-109 mEq/L] 107 mEq/L (12/01/18 8:29 AM) CO2 [24-32 mEq/L] 22 mEq/L *LOW* (12/01/18 8:29 AM) AGAP [10.0-20.0 mEq/L] 11.8 mEq/L (12/01/18 8:29 AM) CHEM PANEL Most recent to oldest [Reference Range]: 1 Creatinine Lvl [0.50-1.40 mg/dL] 0.86 mg/dL (12/01/18 8:29 AM) eGFR 105 mL/min/1.73m2 1 *NA* (12/01/18 8:29 AM) BUN [7-22 mg/dL] 13 mg/dL (12/01/18 8:29 AM) Glucose Lvl [70-99 mg/dL] 97 mg/dL (12/01/18 8:29 AM) Calcium Lvl [8.5-10.5 mg/dL] 8.5 mg/dL (12/01/18 8:29 AM) 1Result Comment: The eGFR is calculated [...] No entered on: 11/30/18 Assessment and Plan No data available for this section
[2019-04-18] MEDS ORDERED: HYDROCODONE/APAP 5/325 MG TAB ONE (20:00)
--- NOTE | 2019-04-18 20:28 | ER ---
Nurse's Notes [facility] Name: José Luis Friedman Age: 43 yrs Sex: Male : 1975 Arrival Date: 04/18/2019 Time: 19:18 Bed 16 Private MD: Diagnosis: Nondisplaced fracture of neck of first metacarpal bone, left hand;Fall on same level, unspecified Presentation: 04/18 19:20 Presenting complaint: Patient states: he fell 2 days ago and injured his L hand. aa1 Moderate swelling noted. CMS intact. Transition of care: patient was not received from another setting of care. Onset of symptoms was April 16, 2019. Risk Assessment: Do you want to hurt yourself or someone else? Patient reports no desire to harm self or others. Initial Sepsis Screen: Does the patient meet any 2 criteria? No. Patient's initial sepsis screen is negative. Does the patient have a suspected source of infection? No. Patient's initial sepsis screen is negative. Care prior to arrival: None. 19:20 Method Of Arrival: Ambulatory aa1 19:20 Acuity: MOOSE 4 aa1 Triage Assessment: 19:21 General: Appears in no apparent distress. comfortable, Behavior is calm, cooperative, aa1 appropriate for age. 19:52 Injury Description: Bruise sustained to left thumb. jd3 Historical: - Allergies: 19:21 No Known Allergies; aa1 - Home Meds: 19:21 None [Active]; aa1 - PMHx: 19:21 None; aa1 - PSHx: 19:21 Total Hip Replacement; HAND SX; aa1 - Immunization history:: Last tetanus immunization: up to date. - Social history:: Smoking status: Patient/guardian denies using tobacco. - Ebola Screening: : No symptoms or risks identified at this time. Screenin:52 Abuse screen: Denies threats or abuse. Nutritional screening: No deficits noted. jd3 Tuberculosis screening: No symptoms or risk factors identified. Fall Risk Ambulatory Aid- None/Bed Rest/Nurse Assist (0 pts). Gait- Normal/Bed Rest/Wheelchair (0 pts) Mental Status- Oriented to own ability (0 pts). Total Phelps Fall Scale indicates No Risk (0-24 pts). Assessment: 19:50 General: Appears in no apparent distress. uncomfortable, Behavior is calm, cooperative, jd3 appropriate for age. Pain: Complains of pain in left hand Quality of pain is described as aching, tender, Aggravated by increased activity. Neuro: Level of Consciousness is awake, alert, obeys commands, Oriented to person, place, time, situation. Cardiovascular: Capillary refill < 3 seconds Patient's skin is warm and dry. Respiratory: Airway is patent Respiratory effort is even, unlabored, Respiratory pattern is regular, symmetrical. GI: No signs and/or symptoms were reported involving the gastrointestinal system. : No signs and/or symptoms were reported regarding the genitourinary system. EENT: No signs and/or symptoms were reported regarding the EENT system. Derm: Skin is intact, Skin is dry, Skin is normal, Skin temperature is warm. Musculoskeletal: Circulation, motion, and sensation intact. Range of motion: limited in CMC of left thumb Swelling present in left thumb. 21:00 Reassessment: Patient and/or family updated on plan of care and expected duration. Pain bb level reassessed. splint to left arm in place, checked by Carol Cardoza DULITE MACHINE BLUER pt verbalized understanding of and agrees to plan of care discharge instructions given pt ambulated with steady gait to exit accompanied by family. Vital Signs: 19:21 BP 139 / 90; Pulse 92; Resp 18; Temp 98.2; Pulse Ox 98% on R/A; Weight 77.11 kg (R); aa1 Height 5 ft. 6 in. (167.64 cm); Pain 6/10; 21:01 BP 134 / 93; Pulse 95; Resp 16 S; Pulse Ox 97% on R/A; Pain 6/10; bb 19:21 Body Mass Index 27.44 (77.11 kg, 167.64 cm) aa1 ED Course: 19:18 Patient arrived in ED. es 19:21 Triage completed. aa1 19:21 Arm band placed on right wrist. aa1 19:26 [facility] Card[facility] FNP-C [facility]. snw 19:26 Franck Vega MD is Attending Physician. snw 19:43 German Vides RN is Primary Nurse. jd3 19:46 Hand Left 3 View XRAY In Process Unspecified. EDMS 19:52 Patient has correct armband on for positive identification. Bed in low position. Call jd3 light in reach. Side rails up X 1. Adult w/ patient. 20:51 Orthoglass splint: Thumb spica splint applied on left forearm. ag4 21:02 No provider procedures requiring assistance completed. Patient did not have IV access bb during this emergency room visit. Administered Medications: 19:48 Drug: [place] 5 mg-325 mg 1 tabs Route: PO; jd3 21:02 Follow up: Response: No adverse reaction; No change in condition bb Outcome: 20:09 Discharge ordered by . ho 21:02 Discharged to home ambulatory, with family. bb 21:02 Condition: stable 21:02 Discharge instructions given to patient, Instructed on discharge instructions, follow up and referral plans. no driving heavy equipment, Demonstrated understanding of instructions, follow-up care, medications, splint care, Prescriptions given X 1. 21:02 Patient left the ED. bb Signatures: Dispatcher [employer] EDJanelle Alarcon RN RN aa1 Carol Cardoza, FENCE GATE ASSEMBLER-C FENCE GATE ASSEMBLER-Csnw Velma Keenan Brenda, RN RN German Gonzales RN RN jDonte Interiano ag4
--- NOTE | 2019-04-18 20:29 | EDPHYS ---
Physician Documentation [facility] Name: José Luis Friedman Age: 43 yrs Sex: Male : 1975 Arrival Date: 04/18/2019 Time: 19:18 Bed 16 Private MD: ED Physician Franck Vega HPI: 04/18 19:42 This 43 yrs old Male presents to ER via Ambulatory with complaints of Hand snw Injury. 19:42 The patient or guardian reports injury, pain, swelling. The complaints affect the left snw hand diffusely. Context: The problem was sustained outdoors, resulted from a fall. Onset: The symptoms/episode began/occurred suddenly, 2 day(s) ago. Associated signs and symptoms: Pertinent positives: swelling/tenderness. Severity of symptoms: At their worst the symptoms were moderate. The patient has not experienced similar symptoms in the past. The patient has not recently seen a physician. previous crush injury to left hand. Historical: - Allergies: 19:21 No Known Allergies; aa1 - Home Meds: 19:21 None [Active]; aa1 - PMHx: 19:21 None; aa1 - PSHx: 19:21 Total Hip Replacement; HAND SX; aa1 - Immunization history:: Last tetanus immunization: up to date. - Social history:: Smoking status: Patient/guardian denies using tobacco. - Ebola Screening: : No symptoms or risks identified at this time. ROS: 19:42 Constitutional: Negative for fever, chills, and weight loss, Eyes: Negative for injury, snw pain, redness, and discharge, ENT: Negative for injury, pain, and discharge, Neck: Negative for injury, pain, and swelling, Cardiovascular: Negative for chest pain, palpitations, and edema, Respiratory: Negative for shortness of breath, cough, wheezing, and pleuritic chest pain, Abdomen/GI: Negative for abdominal pain, nausea, vomiting, diarrhea, and constipation, Back: Negative for injury and pain, : Negative for injury, bleeding, discharge, and swelling, Skin: Negative for injury, rash, and discoloration, Neuro: Negative for headache, weakness, numbness, tingling, and seizure. 19:42 MS/extremity: Positive for injury or acute deformity, decreased range of motion, pain, swelling, tenderness, of the left hand. Exam: 19:40 Constitutional: This is a well developed, well nourished patient who is awake, alert, snw and in no acute distress. Head/Face: Normocephalic, atraumatic. Eyes: Pupils equal round and reactive to light, extra-ocular motions intact. Lids and lashes normal. Conjunctiva and sclera are non-icteric and not injected. Cornea within normal limits. Periorbital areas with no swelling, redness, or edema. ENT: Nares patent. No nasal discharge, no septal abnormalities noted. Tympanic membranes are normal and external auditory canals are clear. Oropharynx with no redness, swelling, or masses, exudates, or evidence of obstruction, uvula midline. Mucous membranes moist. Neck: Trachea midline, no thyromegaly or masses palpated, and no cervical lymphadenopathy. Supple, full range of motion without nuchal rigidity, or vertebral point tenderness. No Meningismus. Chest/axilla: Normal chest wall appearance and motion. Nontender with no deformity. No lesions are appreciated. Cardiovascular: Regular rate and rhythm with a normal S1 and S2. No gallops, murmurs, or rubs. Normal PMI, no JVD. No pulse deficits. Respiratory: Lungs have equal breath sounds bilaterally, clear to auscultation and percussion. No rales, rhonchi or wheezes noted. No increased work of breathing, no retractions or nasal flaring. Abdomen/GI: Soft, non-tender, with normal bowel sounds. No distension or tympany. No guarding or rebound. No evidence of tenderness throughout. Back: No spinal tenderness. No costovertebral tenderness. Full range of motion. Skin: Warm, dry with normal turgor. Normal color with no rashes, no lesions, and no evidence of cellulitis. Neuro: Awake and alert, GCS 15, oriented to person, place, time, and situation. Cranial nerves II-XII grossly intact. Motor strength 5/5 in all extremities. Sensory grossly intact. Cerebellar exam normal. Normal gait. Psych: Awake, alert, with orientation to person, place and time. Behavior, mood, and affect are within normal limits. 19:40 Musculoskeletal/extremity: Extremities: all appear grossly normal, with no appreciated pain with palpation, ROM: intact in all extremities, Pt with previous injury, no rom distal thumb, Sensation intact. left hand with edema s/p fall 48 hours ago. Vital Signs: 19:21 BP 139 / 90; Pulse 92; Resp 18; Temp 98.2; Pulse Ox 98% on R/A; Weight 77.11 kg (R); aa1 Height 5 ft. 6 in. (167.64 cm); Pain 6/10; 21:01 BP 134 / 93; Pulse 95; Resp 16 S; Pulse Ox 97% on R/A; Pain 6/10; bb 19:21 Body Mass Index 27.44 (77.11 kg, 167.64 cm) aa1 MDM: 19:26 Patient medically screened. snw 20:10 Data reviewed: vital signs, nurses notes. Data interpreted: Pulse oximetry: on room air snw is 98 %. Interpretation: normal. Counseling: I had a detailed discussion with the patient and/or guardian regarding: the historical points, exam findings, and any diagnostic results supporting the discharge/admit diagnosis, the presence of at least one elevated blood pressure reading (>120/80) during this emergency department visit, radiology results, the need for outpatient follow up, to return to the emergency department if symptoms worsen or persist or if there are any questions or concerns that arise at home. Special discussion: I have referred the patient to see his PCP for further evaluation of high blood pressure. Based on the history and exam findings, there is no indication for further emergent testing or inpatient evaluation. I discussed with the patient/guardian the need to see the hand specialist for further evaluation of the symptoms. 04/18 19:22 Order name: Hand Left 3 View XRAY; Complete Time: 15:12 aa1 04/18 20:02 Order name: Thumb Spica Splint; Complete Time: 20:52 snw Administered Medications: 19:48 Drug: [place] 5 mg-325 mg 1 tabs Route: PO; jd3 21:02 Follow up: Response: No adverse reaction; No change in condition bb Disposition: 04/19 07:01 Co-signature as Attending Physician, Franck Vega MD I agree with the assessment and kdr plan of care. Disposition: 04/18/19 20:09 Discharged to Home. Impression: Nondisplaced fracture of neck of first metacarpal bone, left hand, Fall on same level, unspecified. - Condition is Stable. - Discharge Instructions: Cast or Splint Care, Adult, Fall Prevention in the Home, MARY for Routine Care of Injuries, Thumb Fracture. - Prescriptions for Ultram 50 mg Oral Tablet - take 1 tablet by ORAL route every 6 hours As needed; 15 tablet. - Work release form, Medication Reconciliation Form, Thank You Letter, Antibiotic Education, Prescription Opioid Use form. - Follow up: Private Physician; When: 1 - 2 days; Reason: Recheck today's complaints, Continuance of care, Re-evaluation by your physician. Follow up: Emergency Department; When: As needed; Reason: Worsening of condition. Signatures: Dispatcher [employer] EDMS Janelle Nina RN RN aa1 Franck Vega MD MD kdr Carol Cardoza, BLOOD BANK ORDER CONTROL CLERK-C BLOOD BANK ORDER CONTROL CLERK-Csnw Shyann Carvalho RN RN German Gonzales RN RN jd3 Corrections: (The following items were deleted from the chart) 04/18 21:02 20:09 04/18/2019 20:09 Discharged to Home. Impression: Nondisplaced fracture of neck of bb first metacarpal bone, left hand; Fall on same level, unspecified. Condition is Stable. Forms are Medication Reconciliation Form, Thank You Letter, Antibiotic Education, Prescription Opioid Use. Follow up: Private Physician; When: 1 - 2 days; Reason: Recheck today's complaints, Continuance of care, Re-evaluation by your physician. Follow up: Emergency Department; When: As needed; Reason: Worsening of condition. snw
--- NOTE | 2019-04-19 08:40 | RAD REPORT ---
EXAM DESCRIPTION: RAD - Hand Left 3 View - 04/18/2019 7:46 pm CLINICAL HISTORY: Fall, left hand pain COMPARISON: July 2018 FINDINGS: Nondisplaced, nonangulated fracture is present at the base of the first metacarpal. Articu lar surface is not involved. No other fracture changes seen. Bony remodeling changes are present involving the third metacarpal. This is related to trauma back in 2018. A few punctate retained foreign bodies are present from med injury. IMPRESSION: Nondisplaced, nonangulated fracture at the base of the left first metacarpal.
== END 2019-04-18 21:02 | disposition home or self-care (01) ==
LOC: ER 19:15
DX: S62.255A Nondisplaced fracture of neck of first metacarpal bone, left hand, initial encounter for closed fracture (principal); W18.30XA Fall on same level, unspecified, initial encounter; Y93.9 Activity, unspecified; Y92.89 Other specified places as the place of occurrence of the external cause
CPT/HCPCS: 99284